=== PATIENT | male | born 1945 | race Caucasian/White ===

== ENCOUNTER → 2020-07-25 08:19 | Outpatient (BNVA) | payer MEDICARE, SELFPAY | PROVIDERS: Visit Provider Orthopaedic Surgery | DX: M11.061 Hydroxyapatite deposition disease, right knee (principal) | CPT/HCPCS: 20610; 99212; J1100 ==

== ENCOUNTER 2023-06-04 12:23 | Inpatient (IN) | payer MEDICARE, SELFPAY ==
--- NOTE | ~2023-06-04 | CT_ITS ---
EXAMINATION: CT ABDOMEN AND PELVIS WITH CONTRAST CLINICAL INFORMATION: Right lower quadrant pain. COMPARISON: None available. TECHNIQUE: Multidetector volumetric images were obtained from the superior aspect of the liver through the pubic symphysis following administration 85 mL of Omnipaque 350 intravenous contrast. Sagittal and coronal reformatted images were obtained on the technologist's workstation. Oral contrast: No This CT examination was performed using dose optimization techniques as appropriate, variously including the following: *Automated exposure control *Adjustment of mA and/or kV according to patient size (this includes techniques or standardized protocols for targeted exams where dose is matched to indication/reason for exam; i.e. extremities or head) *Use of iterative reconstruction technique DLP: 4:30 mGy-cm FINDINGS: LUNG BASES: The visualized lung bases are unremarkable. LIVER, GALLBLADDER, AND BILIARY TREE: There are scattered subcentimeter hepatic hypodensities too small to characterize but possibly small cysts. There is no intrahepatic biliary dilatation. The gallbladder is unremarkable with no evidence of radiopaque gallstones, gallbladder wall thickening, or obvious pericholecystic inflammatory changes. PANCREAS: Unremarkable. SPLEEN: Unremarkable. ADRENAL GLANDS: Unremarkable. KIDNEYS AND URETERS: The kidneys are normal in size, shape, and attenuation. No hydronephrosis, hydroureter, or calculi seen. No perinephric stranding. BLADDER: Unremarkable. GASTROINTESTINAL TRACT: The small and large bowel are unremarkable. The appendix is dilated and thickened up to 1.4 cm with periappendiceal infiltration. ABDOMINAL WALL: No significant hernia is appreciated. LYMPH NODES: Normal. VASCULAR: There is mild atherosclerotic plaque of the abdominal aorta and proximal iliac vessels. PELVIC VISCERA: There is prostate gland hypertrophy. OSSEOUS STRUCTURES: Unremarkable. CT/CT abdomen pelvis w IV con IMPRESSION: Dilated, thickened appendix with periappendiceal infiltration consistent with acute appendicitis. Fleischner guidelines were followed.
[2023-06-04 12:39] VITALS: BP 139/72; PULSE 83; RESP 18; TEMP 36.7; O2SAT 99; BMI 23.7
--- NOTE | 2023-06-04 12:43 | ED.ABDPAIN ---
HPI - Abdominal Pain General Chief Complaint: Abdominal Pain Stated Complaint: Abdominal Pain Time Seen by Provider: 06/04/23 17:10 Source: patient, RN notes reviewed and old records reviewed Mode of arrival: ambulatory Limitations: no limitations History of Present Illness HPI narrative: 77-year-old male past medical history significant for atrial fibrillation on Eliquis, hypertension presents for evaluation of his abdominal pain. Patient reports last night he had some lower abdominal pain that was mostly central. Around 130 this morning pain worsened and his pain now lateralizes to the right lower abdomen He has associated nausea and loose stool Denies any fevers, chills Given the severity his pain he decided to seek medical care He denies any history of abdominal surgeries His pain does not radiate to his back, groin or legs No other complaints or concerns at this time Related Data Home Medications Medication Instructions Recorded Confirmed apixaban 2.5 mg tablet (Eliquis) 2.5 mg PO BID 07/24/20 07/25/20 metoprolol succinate 25 mg 12.5 mg PO DAILY 07/24/20 07/25/20 tablet,extended release 24 hr Allergies Allergy/AdvReac Type Severity Reaction Status Date / Time No Known Allergies Allergy Verified 07/25/20 08:56 Review of Systems Constitutional: Reports as per HPI, Denies chills, Denies fatigue, Denies fever(s) and Denies headache(s) Denies headache(s) Cardiovascular: Denies chest pain and Denies dyspnea Respiratory: Denies cough and Denies dyspnea Gastrointestinal: Reports abdominal pain, Reports change in stool character, Denies constipation, Reports nausea and Denies vomiting Genitourinary: Denies difficulty urinating and Denies dysuria Denies headache(s) and Denies focal weakness Endocrine: Denies fatigue COUNT INCLUDES THE [facility] Past Medical History Medical History (Updated 06/04/23 @ 19:06 by Pedro Porter) Afib Hydroxyapatite deposition disease, unspecified site Surgical History History of carpal tunnel surgery of right wrist Social History Social History Advance Directives: No Advance Directives Information Provided: No Current occupational status: employed and unemployed Current occupation: Right Handed Physical Exam ED Vital Signs: Vital Signs - 24 hr 06/04/23 12:39 06/04/23 17:47 Temperature 98.1 F 98.8 F Pulse Rate 83 75 Respiratory Rate 18 16 Blood Pressure 139/72 120/57 L Pulse Oximetry 99 98 Oxygen Delivery Method Room Air Room Air BMI result Body Mass Index 23.7 Const General: healthy appearing, comfortable, no acute distress, alert and awake Nutritional Appearance: well nourished Orientation/consciousness: patient oriented x3 HENMT Head: Yes normocephalic and Yes atraumatic Eyes Eyelids: Yes eyelids normal Conjunctivae: conjunctivae normal Sclerae: sclerae normal Corneas: corneas normal Pupils: Equal, round and reactive pupils present EOM: EOMs intact bilaterally Neck Neck: Yes full ROM Resp Effort & Inspection: normal respiratory effort, able to speak in complete sentences and not labored GI Inspection: No distended Palpation (GI): Soft to palpation, not firm, Tenderness to palpation present (GI) in the RLQ and suprapubicly, Guarding due to palpation present (GI) in the RLQ and not rigid Skin General skin exam: elasticity normal Neuro General: patient oriented x3 Cranial nerves: Yes Equal, round and reactive pupils present and Yes Bilaterally intact EOM present Cognition (Neuro): normal cognition Extrem Other: Moving all extremities well without any obvious deformities Course Course Course Narrative: This is an RME: Additional HPI, ROS, PE not included below will be deferred to primary provider. 69-year-old male presents with complaints of right lower quadrant pain that started suddenly at 01:00, reports associated nausea, no vomiting or diarrhea. Patient states he has no appetite. He had to force himself to eat oatmeal this morning. Also complaining of cough, congestion and body aches since yesterday negative COVID test at home. Plan labs, viral test Medical Decision Making Medical Decision Making MDM Narrative: 77-year-old male presents for evaluation of right lower abdominal pain with GI symptoms. He is tender and guarding to the right lower quadrant on exam. Will get a CT scan of the abdomen pelvis to evaluate for acute appendicitis. Labs are all significant for a mild leukocytosis with a left shift. No significant his chemistry abnormalities Differential Diagnosis Differential Diagnoses: The differential diagnosis associated with the presentation includes Acute appendicitis Obstructive uropathy Inguinal hernia Constipation Gastroenteritis Admission/Observation Consideration of admission/observation: Escalation of care including admission/observation considered Patient will be admitted to the surgical service for acute appendicitis Consult Healthcare Provider Management of the patient was discussed with: Lead Rider (Dr. Jose Soto, general surgery for acute appendicitis) Lab Data MDM Lab Attestation statement: I reviewed the patient's lab results. Mild leukocytosis of 12.6 K with a left shift. No anemia, no electrolyte abnormalities. Normal renal function 06/04/23 12:46 06/04/23 12:46 Labs: Lab Results 06/04/23 06/04/23 Range/Units 12:46 12:47 WBC 12.6 H (4.8-10.8) X10*3/uL RBC 4.46 L (4.60-5.80) X10*6/uL Hgb 14.1 (14.0-18.0) g/dl Hct 42.1 (42.0-52.0) % MCV 94.4 (80.0-98.0) fL MCH 31.6 (27.0-33.0) pg MCHC 33.5 (31.0-36.0) g/dl RDW 13.1 (11.0-16.0) % Plt Count 197 (160-400) X10*3/uL MPV 9.4 (9.4-12.4) fL Immature Gran % (Auto) 0.4 (0.0-0.4) % Neut % (Auto) 85.8 H (45-73) % Lymph % (Auto) 5.6 L (20-40) % [place] % (Auto) 7.9 (2-11) % Eos % (Auto) 0.1 (0-4) % Baso % (Auto) 0.2 (0-2) % Lymph # (Auto) 0.7 L (1.2-4.9) X10*3/uL [place] # (Auto) 1.0 (0.1-1.2) X10*3/uL Eos # (Auto) 0.0 (0.0-0.4) X10*3/uL Baso # (Auto) 0.0 (0.0-0.2) X10*3/uL Abs Immat Gran (auto) 0.05 H (0.00-0.03) X10*3/uL Absolute Neuts (auto) 10.8 H (2.0-8.3) x10*3/uL Absolute Nucleated RBC 0.000 (0.0-0.012) X10*3/uL Nucleated RBC % (auto) 0.0 (0.0-0.2) /100WBC Sodium 138 (135-145) mmol/L Potassium 4.3 (3.3-5.1) mmol/L Chloride 106 (96-108) mmol/L Carbon Dioxide 27 (22-29) mmol/L Anion Gap 9 L (12-20) BUN 13 (9-16) mg/dL Creatinine 1.10 (0.5-1.4) mg/dL Estim Creat Clear Calc 49.9 Estimated GFR > 60 Random Glucose 134 H (60-115) mg/dL Calcium 9.9 (8.4-10.2) mg/dL Magnesium 1.6 (1.6-2.6) mg/dL Total Bilirubin 1.6 H (0.0-1.0) mg/dL AST 19 (5-37) U/L ALT 16 (0-40) U/L Alkaline Phosphatase 38 L (39-117) U/L Total Protein 7.7 (6.5-8.0) g/dL Albumin 4.4 (3.5-5.0) g/dL Lipase 23 (8-78) U/L COVID-19 ([facility]) Negative (Negative) COVID-19 Clin Com See Note Independent Interpretation I performed an independent interpretation of an: CT Scan (Thickened appendix with periappendiceal stranding) Radiology Impression Discussion of test interpretation with radiology: I have reviewed the radiologist's reading. (Findings consistent with acute appendicitis) Medications Administered Discontinued Medications Generic Name Dose Route Start Last Admin Trade Name Freq PRN Reason Stop Dose Admin Sodium Chloride 1,000 mls @ 999 mls/hr 06/04/23 17:30 06/04/23 17:42 Ns IV 06/04/23 18:30 999 mls/hr .Q1H1M REGINE Administration Iohexol 100 ml 06/04/23 18:08 06/04/23 18:09 Iohexol 350 Mg/Ml 100 Ml Infus..Btl IV 06/04/23 18:09 85 ml ONCE ONE Administration Morphine Sulfate 2 mg 06/04/23 17:20 06/04/23 17:42 Morphine Sulfate 2 Mg/Ml Cartridge IVPUSH 06/04/23 17:21 2 mg ONCE ONE Administration Protocol Ondansetron HCl 4 mg 06/04/23 17:20 06/04/23 17:42 Ondansetron Hcl 4 Mg/2 Ml Vial IVPUSH 06/04/23 17:21 4 mg ONCE ONE Administration Discharge Plan Discharge Clinical Impression: Acute appendicitis Patient Disposition: Admitted As Inpatient Prescriptions: No Action Eliquis 2.5 mg tablet 2.5 mg PO BID metoprolol succinate 25 mg tablet extended release 24 hr 12.5 mg PO DAILY
[2023-06-04 12:53] LABS: MANUAL DIFF FLAG NO
[2023-06-04 12:54] LABS: Basophils Percent Auto 0.2 % (0-2); Eosinophils Percent Auto 0.1 % (0-4); Hematocrit 42.1 % (42.0-52.0); Hemoglobin 14.1 g/dl (14.0-18.0); Imm Gran Abs Auto 0.05 X10*3/uL (0.00-0.03); Imm Gran Pct Auto 0.4 % (0.0-0.4); Lymphocytes Absolute Auto 0.7 X10*3/uL (1.2-4.9); Lymphocytes Percent Auto 5.6 % (20-40); Mean Corpuscular HGB Conc 33.5 g/dl (31.0-36.0); Mean Corpuscular Hemoglobin 31.6 pg (27.0-33.0); Mean Corpuscular Volume 94.4 fL (80.0-98.0); Mean Platelet Volume 9.4 fL (9.4-12.4); Monocytes Percent Auto 7.9 % (2-11); Neutrophils Absolute Auto 10.8 x10*3/uL (2.0-8.3); Neutrophils Percent Auto 85.8 % (45-73); Platelet Count 197 X10*3/uL (160-400); Red Blood Count 4.46 X10*6/uL (4.60-5.80); Red Cell Distribution Width 13.1 % (11.0-16.0); White Blood Count 12.6 X10*3/uL (4.8-10.8)
[2023-06-04 13:06] LABS: Alanine Aminotransferase 16 U/L (0-40); Albumin Level 4.4 g/dL (3.5-5.0); Alkaline Phosphatase 38 U/L (39-117); Anion Gap 9 (12-20); Aspartate Amino Transferase 19 U/L (5-37); Bilirubin Total 1.6 mg/dL (0.0-1.0); Blood Urea Nitrogen 13 mg/dL (9-16); Calcium 9.9 mg/dL (8.4-10.2); Carbon Dioxide 27 mmol/L (22-29); Chloride 106 mmol/L (96-108); Creatinine Clr Calc Pharmacy 49.9; Estimated Glomerular Filt Rate > 60; Glucose Random 134 mg/dL (60-115); Lipase 23 U/L (8-78); Magnesium 1.6 mg/dL (1.6-2.6); Potassium 4.3 mmol/L (3.3-5.1); Sodium 138 mmol/L (135-145); Total Protein 7.7 g/dL (6.5-8.0)
[2023-06-04 13:26] LABS: COVID-19 Test Negative (Negative); IDNOW Serial# BCCEAD1C
[2023-06-04] MEDS: 0.9 % Sodium Chloride 1,000 ML 999 ML IV (17:42)
[2023-06-04] MEDS: Morphine Sulfate 2 MG/ML CARTRIDGE IVPUSH (17:42)
[2023-06-04] MEDS: ondansetron HCL 4 MG/2 ML VIAL IVPUSH (17:42)
[2023-06-04 17:47] VITALS: BP 120/57; PULSE 75; RESP 16; TEMP 37.1; O2SAT 98
--- NOTE | 2023-06-04 18:03 | PC.NURSE ---
alert and oriented, respirations even and unlabored. iv established, medicated per the MAR with fluids infusing. off at CT scan at this time.
[2023-06-04] MEDS: iohexoL 350 MG/ML 100 ML INFUS..BTL IV (18:09)
[2023-06-04 19:15] LABS: INTERNATIONAL NORM RATIO 1.8 (0.9-1.1); Prothrombin Time 22.3 SEC (11.1-13.3)
[2023-06-04 19:17] LABS: Partial Thromboplastin Time 34.3 SEC (26.0-36.4)
[2023-06-04] MEDS: Piperacillin Sodium/Tazobactam 3.375 GM in 0.9 % Sodium Chloride 50 ML IV (19:49)
--- NOTE | 2023-06-04 20:10 | PC.NURSE ---
Assumed care of patient at 1915. Pt alert and oriented in no acute distress. PT reports 5/10 pain at this time when he coughs. Blood cultures draw at two different sites. IV abx administered. IV line intact and patent. at bedside. Report given to Charge Nurse floor 3. PT to be transported by aviva Dorsey.
[2023-06-04 20:21] VITALS: BP 122/57; PULSE 71; RESP 20; TEMP 37; O2SAT 97
[2023-06-04 20:23] VITALS: BMI 24.5
[2023-06-04] MEDS: Acetaminophen 1,000 MG/100 ML PIGGYBACK 400 MG IV (21:09)
[2023-06-04] MEDS: Dextrose 5 % and Lactated Ring 1,000 ML 125 ML IVCONT (21:27)
[2023-06-04 23:23] LABS: Appearance Urine Clear; Color Urine Yellow; Glucose Urine UA Negative (Negative); Leukocyte Esterase Urine Negative (Negative); Nitrite Urine Negative (Negative); Specific Gravity - Urine >= 1.030 (1.005-1.025); UMIC TRIGGER UACC YES; Urine Blood Trace (Negative); Urine Ketones Negative (Negative); Urine Protein Negative (Neg-Trace)
[2023-06-04 23:28] LABS: Bacteria Urine None Seen (None Seen); Hyaline Casts Urine 0-2 /LPF (0-2); RBC Urine 0-2 /HPF (0-2); Squamous Epithelial Cell Urine 0-2 /HPF (0-2); WBC Urine 0-5 /HPF (0-5)
[2023-06-05] VITALS (7 sets, daily range): BP systolic 105–137; BP diastolic 55–66; PULSE 47–79; RESP 16–18; TEMP 36–36.6; O2SAT 95–99
--- NOTE | 2023-06-05 | ECG_ITS ---
Test Reason : bradycardia Blood Pressure : / mmHG Vent. Rate : 101 BPM Atrial Rate : 293 BPM P-R Int : 000 ms QRS Dur : 084 ms QT Int : 312 ms P-R-T Axes : 248 074 -51 degrees QTc Int : 404 ms Atrial flutter with variable A-V block Inferior-posterior infarct , age undetermined Abnormal ECG When compared with ECG of 06-JUN-2023 02:22, Rhythm shows atrial flutter with variable block Inferior-posterior infarct is now Present Referred By: Keila Flores Electronically Signed By:DIRK VARGAS
[2023-06-05] MEDS: Piperacillin Sodium/Tazobactam 3.375 GM in 0.9 % Sodium Chloride 50 ML IV ×4 (00:25→19:28)
[2023-06-05] MEDS: Acetaminophen 1,000 MG/100 ML PIGGYBACK 400 MG IV ×3 (03:53→14:14)
[2023-06-05] MEDS: Dextrose 5 % and Lactated Ring 1,000 ML 125 ML IVCONT ×3 (03:53→20:38)
[2023-06-05] MEDS: Benzonatate 100 MG CAPSULE 200 MG PO (04:26)
--- NOTE | 2023-06-05 07:18 | PHA.MEDREC ---
Pharmacy Consult ? Medication Reconciliation Pharmacy has completed the medication reconciliation.
--- NOTE | 2023-06-05 07:49 | PM.HPGS ---
History of Present Illness History of Present Illness Date of Service: 06/05/23 Chief complaint: Acute appendicitis Narrative: Solitario Mckee is a 77 year old male Presenting with complaints of abdominal pain in the right lower quadrant. Pain began as generalized lower abdominal pain on ( 06/03/2023 ) and gradually radiated to the right lower quadrant 1 day later. When the pain persisted and increased in severity he subsequently presented to the emergency department for further evaluation. He denies a previous history of abdominal pain similar to this. The pain seems to increase with motion. He reports nausea without vomiting as well as several loose bowel movements. He denied fever or chills. He presented to the emergency department and was found to have an elevated WBC of 12. CT abdomen and pelvis revealed a dilated appendix with surrounding inflammatory changes suggestive of acute appendicitis. No free fluid or abscess could be identified. No fecalith was identified. Patient was admitted and started on IV antibiotics. Patient has a prior history of atrial fibrillation and is on Eliquis 5 mg p.o. b.i.d.; he took his morning dose on 06/04/2023. This morning he reports feeling much improved with decreased abdominal pain and no pain with motion. He does have pain when pressing the abdomen in the right lower quadrant. Review of Systems Review of Systems: Yes all other systems are reviewed and are negative Constitutional: Constitutional: Denies chills and Denies fever(s) ENT: Reports hoarseness Cardiovascular: Cardiovascular: Reports irregular heart rhythm Respiratory: Respiratory: Denies pain with cough, Denies stridor and Denies wheezing Gastrointestinal: Gastrointestinal: Reports as per HPI, Reports abdominal pain, Reports loose stools, Reports nausea and Denies vomiting Allergic/Immunologic: Allergic/Immunologic: Denies wheezing [facility] Past Medical History Medical History Afib Hydroxyapatite deposition disease, unspecified site Surgical History Surgical History History of carpal tunnel surgery of right wrist Social History Social History Household Members: Significant Other Housing: Condominium Do you presently have visiting nurse or other home services: No Patient Tobacco Use Status: Never used Tobacco Substance Use Type Other:: thc and cbd seltzer twice a month or less Currently Displaying Signs/Symptoms of Drug Intoxication Withdrawal: No Have you been hit, kicked, punched, or otherwise hurt by someone within the past year? If so, by whom?: No Do you feel safe in your current relationship?: Yes Is there a partner from a previous relationship who is making you feel unsafe now?: No Are you made to feel afraid or neglected: No Advance Directives: No Advance Directives Information Provided: No Do you have thoughts of harming others: None Do you have a plan to hurt others: No Plan Recently lost weight without trying: No Nutrition Risks: No Nutritional Risk Current occupational status: employed and unemployed Current occupation: Right Handed Meds Allergies Allergy/AdvReac Type Severity Reaction Status Date / Time No Known Allergies Allergy Verified 07/25/20 08:56 Active Medications: Current Medications Benzonatate (Benzonatate 100 Mg Capsule) 200 mg PO TID PRN PRN Reason: Cough Last Admin: 06/05/23 04:26 Dose: 200 mg Hydromorphone HCl (Hydromorphone Hcl 0.5 Mg/0.5 Ml Syringe) 0.5 mg IVPUSH Q3H PRN; Protocol PRN Reason: Pain, Severe (Pain Scale 7-10) Dextrose/Lactated Ringer's (D5lr) 1,000 mls @ 125 mls/hr IVCONT .Q8H [facility] Last Admin: 06/05/23 03:53 Dose: 125 mls/hr Piperacillin Sod/Tazobactam (Sod 3.375 gm/ Sodium Chloride) 50 mls @ 100 mls/hr IV Q6H [facility] Last Infusion: 06/05/23 07:38 Dose: Infused Acetaminophen (Ofirmev) 1,000 mg in 100 mls @ 400 mls/hr IV Q6H [facility] Stop: 06/05/23 15:14 Last Infusion: 06/05/23 04:23 Dose: Infused Ondansetron HCl (Ondansetron Hcl 4 Mg/2 Ml Vial) 4 mg IVPUSH QID PRN PRN Reason: Nausea Sodium Chloride (0.9 % Sodium Chloride Flush 3 Ml Syringe) 3 ml IVFLUSH QSHIFT [facility] Last Admin: 06/04/23 22:01 Dose: Not Given Zolpidem Tartrate (Zolpidem Tartrate 5 Mg Tablet) 5 mg PO BEDTIME PRN PRN Reason: Insomnia Home Medications Medication Instructions Recorded Confirmed Last Taken Type apixaban 5 mg tablet (Eliquis) 5 mg PO BID 06/04/23 06/04/23 06/04/23 18:30 History cholecalciferol (vitamin D3) 25 25 mcg PO DAILY 06/04/23 06/04/23 06/04/23 History mcg (1,000 unit) tablet folic acid 1 mg tablet 1 mg PO DAILY 06/04/23 06/04/23 06/04/23 History lutein 1 tab PO DAILY 06/04/23 06/04/23 06/04/23 History Physical Exam Vital Signs: Vital Signs: Last Vital Signs Temp 97.1 F 06/05/23 07:44 Pulse 53 06/05/23 07:44 Resp 18 06/05/23 07:44 BP 109/57 L 06/05/23 07:44 Pulse Ox 97 06/05/23 07:44 O2 Del Method Room Air 06/05/23 07:44 BMI result Body Mass Index 24.5 Const: General: no acute distress and well developed Nutritional Appearance: well nourished Orientation/consciousness: patient oriented x3 Limitations: no limitations HEENT: Head: Yes normocephalic and Yes atraumatic Ears: hearing grossly normal bilaterally Eyes: Sclerae: sclerae normal EOM: EOMs intact bilaterally Resp: Effort & Inspection: normal respiratory effort, no audible wheezes, no cough and no respiratory distress GI: Inspection: Yes normal to inspection Palpation (GI): Soft to palpation, Tenderness to palpation present (GI) in the RLQ; obturator sign negative, psoas sign negative, with no rebound tenderness and Rovsing's sign negative, no guarding, not rigid and No hepatosplenomegaly present Percussion: Yes normal to percussion Auscultation: normal bowel sounds Rectal Exam - Male: Yes deferred Skin: Other: Warm, dry, no rash Neuro: General: patient oriented x3 Extrem: General: Yes no clubbing, cyanosis or edema Results Results Labs: Short CBC 06/04/23 Range/Units 12:46 WBC 12.6 H (4.8-10.8) X10*3/uL Hgb 14.1 (14.0-18.0) g/dl Hct 42.1 (42.0-52.0) % Plt Count 197 (160-400) X10*3/uL BMP 06/04/23 12:46 Sodium 138 Potassium 4.3 Chloride 106 Carbon Dioxide 27 BUN 13 Creatinine 1.10 Calcium 9.9 Liver Function 06/04/23 Range/Units 12:46 Total Bilirubin 1.6 H (0.0-1.0) mg/dL AST 19 (5-37) U/L ALT 16 (0-40) U/L Alkaline Phosphatase 38 L (39-117) U/L Albumin 4.4 (3.5-5.0) g/dL Urine 06/04/23 Range/Units 23:03 Urine Color Yellow Urine Appearance Clear Urine pH 5.0 (5.0-9.0) Ur Specific [place] >= 1.030 H (1.005-1.025) Urine Protein Negative (Neg-Trace) mg/dL Urine Glucose (UA) Negative (Negative) mg/dL Assessment and Plan (1) Acute appendicitis: Qualifiers: Acute appendicitis type: with localized peritonitis Appendicitis gangrene presence: without gangrene Appendicitis perforation presence: without perforation Appendicitis abscess presence: without abscess Qualified Code(s): K35.30 - Acute appendicitis with localized peritonitis, without perforation or gangrene Status: Acute Plan 77-year-old male patient with history of atrial fibrillation on anticoagulation presenting with complaints of abdominal pain in the right lower quadrant 2 days duration. Workup in the emergency department revealed an elevated WBC and CT with evidence of a dilated appendix inflammation suggestive of acute appendicitis. On examination the patient does have tenderness in the right lower quadrant suggestive of acute appendicitis. Overall patient is much improved after receiving antibiotics overnight. We discussed the option of proceeding to laparoscopic or possible open appendectomy verses continued treatment with antibiotics. We also discussed the risks of appendectomy given his oral anticoagulation. He wishes to continue on antibiotics as this does seem to be helping. I recommended continuing IV antibiotics for another 24 hours. Laboratories have been ordered for today but have yet to be drawn at the time of this dictation. Hospitalist consultation requested for management of his medications. If he continues to improve I will switch him to oral antibiotics tomorrow with possible discharge to home. However if the pain seems to not be improving, laparoscopic appendectomy would be recommended. Expressed understanding and agrees with the plan. Time Spent With Patient Time: Total time managing care of this patient today _45___ minutes. Quality Stroke Does the patient have a stroke diagnosis?: No VTE Prior VTE?: No VTE Risk Level:: Surgical - moderate VTE Device Contraindication: N/A - Device Ordered VTE Drug Contraindication: Patient Refused Procedures Date of Service Date of Service: 06/05/23
[2023-06-05 08:39] LABS: MANUAL DIFF FLAG NO
[2023-06-05 08:42] LABS: Basophils Percent Auto 0.2 % (0-2); Eosinophils Percent Auto 0.3 % (0-4); Hematocrit 35.8 % (42.0-52.0); Hemoglobin 11.9 g/dl (14.0-18.0); Imm Gran Abs Auto 0.02 X10*3/uL (0.00-0.03); Imm Gran Pct Auto 0.2 % (0.0-0.4); Lymphocytes Absolute Auto 1.7 X10*3/uL (1.2-4.9); Lymphocytes Percent Auto 18.1 % (20-40); Mean Corpuscular HGB Conc 33.2 g/dl (31.0-36.0); Mean Corpuscular Hemoglobin 31.6 pg (27.0-33.0); Mean Platelet Volume 10.1 fL (9.4-12.4); Monocytes Absolute Auto 0.9 X10*3/uL (0.1-1.2); Monocytes Percent Auto 9.5 % (2-11); Neutrophils Absolute Auto 6.5 x10*3/uL (2.0-8.3); Neutrophils Percent Auto 71.7 % (45-73); Platelet Count 167 X10*3/uL (160-400); Red Blood Count 3.77 X10*6/uL (4.60-5.80); Red Cell Distribution Width 13.2 % (11.0-16.0); White Blood Count 9.1 X10*3/uL (4.8-10.8)
[2023-06-05 09:04] LABS: Alanine Aminotransferase 12 U/L (0-40); Albumin Level 3.5 g/dL (3.5-5.0); Alkaline Phosphatase 27 U/L (39-117); Anion Gap 10 (12-20); Aspartate Amino Transferase 13 U/L (5-37); Blood Urea Nitrogen 12 mg/dL (9-16); Carbon Dioxide 25 mmol/L (22-29); Chloride 107 mmol/L (96-108); Creatinine Clr Calc Pharmacy 47.7; Estimated Glomerular Filt Rate > 60; Glucose Random 97 mg/dL (60-115); Potassium 3.7 mmol/L (3.3-5.1); Sodium 138 mmol/L (135-145); Total Protein 6.2 g/dL (6.5-8.0)
--- NOTE | 2023-06-05 15:17 | MHC.CM.PN ---
CM ATTEMPTED TO SEE PT WHO WAS SLEEPING, CM WILL RETURN
[2023-06-05] MEDS: 0.9 % Sodium Chloride Flush 3 ML SYRINGE IVFLUSH (15:39)
--- NOTE | 2023-06-05 17:27 | PM.IMCN ---
History of Present Illness Data of Consult Service Date: 06/05/23 Requesting physician: Jose Soto Primary Care Provider: Karan Crook MD [facility] Reason for consult: afib, appendicitis This is a 77-year-old male with history of atrial fibrillation who presented to the emergency department with complaints of abdominal pain. Workup in the emergency department was consistent with acute appendicitis and he was admitted to the surgical service for further management. He was started on Zosyn and the hospitalists were consulted for assistance with medical management. Patient states that his abdominal pain is beginning to improve. He has no nausea or vomiting at this time. He denies any associated fever, chills. Review of Systems Review of Systems: Yes all other systems are reviewed and are negative Constitutional: Constitutional: Denies chills and Denies fever(s) Cardiovascular: Cardiovascular: Denies chest pain, Denies palpitations and Denies paroxysmal nocturnal dyspnea Gastrointestinal: Gastrointestinal: Reports abdominal pain Endocrine: Endocrine: Denies palpitations [facility] Medical History Afib Hydroxyapatite deposition disease, unspecified site Functional capacity: independent ambulation Surgical History History of carpal tunnel surgery of right wrist Social History Household Members: Significant Other Housing: Condominium Do you presently have visiting nurse or other home services: No Patient Tobacco Use Status: Never used Tobacco Substance Use Type Other:: thc and cbd seltzer twice a month or less Currently Displaying Signs/Symptoms of Drug Intoxication Withdrawal: No Have you been hit, kicked, punched, or otherwise hurt by someone within the past year? 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375 gm/ Sodium Chloride) 50 mls @ 100 mls/hr IV Q6H [facility] Last Infusion: 06/05/23 14:11 Dose: Infused Ondansetron HCl (Ondansetron Hcl 4 Mg/2 Ml Vial) 4 mg IVPUSH QID PRN PRN Reason: Nausea Sodium Chloride (0.9 % Sodium Chloride Flush 3 Ml Syringe) 3 ml IVFLUSH QSHIFT [facility] Last Admin: 06/05/23 15:39 Dose: 3 ml Zolpidem Tartrate (Zolpidem Tartrate 5 Mg Tablet) 5 mg PO BEDTIME PRN PRN Reason: Insomnia Home Medications Medication Instructions Recorded Confirmed Last Taken Type apixaban 5 mg tablet (Eliquis) 5 mg PO BID 06/04/23 06/04/23 06/04/23 18:30 History cholecalciferol (vitamin D3) 25 25 mcg PO DAILY 06/04/23 06/04/23 06/04/23 History mcg (1,000 unit) tablet folic acid 1 mg tablet 1 mg PO DAILY 06/04/23 06/04/23 06/04/23 History lutein 1 tab PO DAILY 06/04/23 06/04/23 06/04/23 History Physical Exam Vital Signs and Narrative: Vital Signs: Last Vital Signs Temp 96.8 F 06/05/23 15:40 Pulse 50 06/05/23 15:40 Resp 16 06/05/23 15:40 BP 106/58 L 06/05/23 15:40 Pulse Ox 97 06/05/23 15:40 O2 Del Method Room Air 06/05/23 15:40 BMI result Body Mass Index 24.5 Const: General: cooperative, comfortable, no acute distress, alert and awake Nutritional Appearance: average body habitus Orientation/consciousness: patient oriented x3 Resp: Effort & Inspection: normal respiratory effort, able to speak in complete sentences, no respiratory distress and no use of accessory muscles Cardio: Rate: regular rate GI: Other: tender RLQ, no guarding or rebound Palpation (GI): Soft to palpation Neuro: General: patient oriented x3, moves all extremities and CN's II-XI intact bilaterally Extrem: General: Yes no pedal edema Results Labs 06/05/23 07:43 06/05/23 07:43 Labs: Laboratory Results - last 24 hr 06/04/23 06/04/23 06/05/23 19:01 23:03 07:43 MCV 95.0 MCH 31.6 MCHC 33.2 RDW 13.2 Plt Count 167 MPV 10.1 Immature Gran % (Auto) 0.2 Neut % (Auto) 71.7 Lymph % (Auto) 18.1 L Benson % (Auto) 9.5 Eos % (Auto) 0.3 Baso % (Auto) 0.2 Lymph # (Auto) 1.7 Benson # (Auto) 0.9 Eos # (Auto) 0.0 Baso # (Auto) 0.0 Abs Immat Gran (auto) 0.02 Absolute Neuts (auto) 6.5 Absolute Nucleated RBC 0.000 Nucleated RBC % (auto) 0.0 PT 22.3 H INR 1.8 H APTT 34.3 Anion Gap 10 L Estim Creat Clear Calc 47.7 Estimated GFR > 60 Random Glucose 97 Calcium 9.0 D Total Bilirubin 2.0 H AST 13 ALT 12 Alkaline Phosphatase 27 L Total Protein 6.2 L Albumin 3.5 Urine Color Yellow Urine Appearance Clear Urine pH 5.0 Ur Specific [place] >= 1.030 H Urine Protein Negative Urine Glucose (UA) Negative Urine Ketones Negative Urine Blood Trace H Urine Nitrite Negative Ur Leukocyte Esterase Negative Urine RBC 0-2 Urine WBC 0-5 Ur Squamous Epith Cells 0-2 Urine Bacteria None Seen Hyaline Casts 0-2 Blood Type B Positive Antibody Screen NEGATIVE Imaging Radiologist's Impressions: Impressions Abdomen/Pelvis CT 06/04/23 18:10 IMPRESSION: Dilated, thickened appendix with periappendiceal infiltration consistent with acute appendicitis. Fleischner guidelines were followed. Assessment and Plan (1) Acute appendicitis: Qualifiers: Acute appendicitis type: with localized peritonitis Appendicitis abscess presence: without abscess Appendicitis gangrene presence: without gangrene Appendicitis perforation presence: without perforation Qualified Code(s): K35.30 - Acute appendicitis with localized peritonitis, without perforation or gangrene Status: Acute Plan This is a 77-year-old male with history of atrial fibrillation on Eliquis he presented to the emergency department with abdominal pain found to have acute appendicitis and admitted to the surgical service for further management acute appendicitis Management as per surgical team Eliquis currently on hold in anticipation of possible surgical intervention paroxysmal atrial fibrillation status post ablation HR controlled, no longer on rate controlling medication Eliquis on hold as above Normocytic anemia H/H above transfusion threshold follow CBC Thank you for allowing us to participate in the care of this patient, we will follow along with you Time Spent With Patient Time: Total time managing care of this patient today ____ minutes.
--- NOTE | 2023-06-05 18:32 | PC.NURSE ---
Patient HR low 43-47 range ,BP 137/63,sat 99% on RA ,patient c/o feeling weak,LEWIS Pardo notified,
--- NOTE | 2023-06-05 19:01 | PC.NURSE ---
EKG done ,Dr. Etienne made aware of results
[2023-06-05] MEDS: Magnesium Sulfate/D5W 1 GM/100 ML PIGGYBACK IV (19:14)
[2023-06-05] MEDS: Potassium Chloride/H20 10 MEQ/100 ML PIGGYBACK 100 MEQ IV ×2 (20:41→21:45)
--- NOTE | 2023-06-06 | ECG_ITS ---
Test Reason : tachycardia Blood Pressure : / mmHG Vent. Rate : 049 BPM Atrial Rate : 049 BPM P-R Int : 164 ms QRS Dur : 080 ms QT Int : 410 ms P-R-T Axes : 065 026 052 degrees QTc Int : 370 ms Sinus bradycardia Otherwise normal ECG No previous ECGs available Referred By: Keila Flores Electronically Signed By:DIRK VARGAS
[2023-06-06] MEDS: Piperacillin Sodium/Tazobactam 3.375 GM in 0.9 % Sodium Chloride 50 ML IV ×2 (00:14→07:46)
[2023-06-06] MEDS: 0.9 % Sodium Chloride Flush 3 ML SYRINGE IVFLUSH (00:20)
[2023-06-06 02:22] VITALS: BP 134/65; PULSE 40; RESP 16; TEMP 36.4; O2SAT 96
[2023-06-06 02:39] VITALS: BP 147/67; PULSE 50; RESP 14; TEMP 36.1; O2SAT 95
[2023-06-06] MEDS: Dextrose 5 % and Lactated Ring 1,000 ML 125 ML IVCONT (05:45)
[2023-06-06 07:36] VITALS: BP 136/66; PULSE 52; RESP 18; TEMP 36.1; O2SAT 98
[2023-06-06 07:56] LABS: Hematocrit 36.2 % (42.0-52.0); Hemoglobin 12.1 g/dl (14.0-18.0); Mean Corpuscular HGB Conc 33.4 g/dl (31.0-36.0); Mean Corpuscular Volume 95.8 fL (80.0-98.0); Mean Platelet Volume 10.7 fL (9.4-12.4); Platelet Count 175 X10*3/uL (160-400); Red Blood Count 3.78 X10*6/uL (4.60-5.80); Red Cell Distribution Width 13.1 % (11.0-16.0); White Blood Count 5.5 X10*3/uL (4.8-10.8)
[2023-06-06 08:18] LABS: Anion Gap 14 (12-20); Blood Urea Nitrogen 8 mg/dL (9-16); Calcium 8.9 mg/dL (8.4-10.2); Carbon Dioxide 23 mmol/L (22-29); Chloride 108 mmol/L (96-108); Creatinine Clr Calc Pharmacy 49.9; Estimated Glomerular Filt Rate > 60; Glucose Random 104 mg/dL (60-115); Potassium 3.7 mmol/L (3.3-5.1); Sodium 141 mmol/L (135-145)
[2023-06-06 08:38] LABS: Thyroid Stimulating Hormone 1.92 uIU/mL (0.32-4.0)
--- NOTE | 2023-06-06 08:55 | P.PNGS_ITS ---
Subjective Subjective Date of Service: 06/06/23 Interval history: Patient had a period of low heart rate during the night. Feels improved this morning with no abdominal pain. Denies nausea, vomiting, but does report several loose bowel movements. He reports being hungry this morning. Physical Exam 2 Vital Signs: Vital Signs: Last Vital Signs Temp 96.9 F 06/06/23 07:36 Pulse 52 06/06/23 07:36 Resp 18 06/06/23 07:36 BP 136/66 06/06/23 07:36 Pulse Ox 98 06/06/23 07:36 O2 Del Method Room Air 06/06/23 07:36 BMI result Body Mass Index 24.5 Const: General: no acute distress and well developed Nutritional Appearance: well nourished Orientation/consciousness: patient oriented x3 Limitations: no limitations HEENT: Head: Yes normocephalic and Yes atraumatic Ears: hearing grossly normal bilaterally Eyes: Sclerae: sclerae normal EOM: EOMs intact bilaterally Resp: Effort & Inspection: normal respiratory effort, no audible wheezes, no cough and no respiratory distress GI: Inspection: Yes normal to inspection Palpation (GI): Soft to palpation, nontender, no guarding, not rigid and No hepatosplenomegaly present P ercussion: Yes normal to percussion Auscultation: normal bowel sounds R ectal Exam - Male: Yes deferred Skin: Other: Warm, dry, no rash Neuro: General: patient oriented x3 Extrem: General: Yes no clubbing, cyanosis or edema Objective Data Active Medications Amoxicillin/Clavulanate Potassium (Amoxicillin/Potassium Clav 875 Mg Tablet) 875 mg PO BID [facility] Apixaban (Apixaban 5 Mg Tablet) 5 mg PO BID [facility] Benzonatate (Benzonatate 100 Mg Capsule) 200 mg PO TID PRN PRN Reason: Cough Last Admin: 06/05/23 04:26 Dose: 200 mg Documented By: PURA Folic Acid (Folic Acid 1 Mg Tablet) 1 mg PO DAILY [facility] Hydromorphone HCl (Hydromorphone Hcl 0.5 Mg/0.5 Ml Syringe) 0.25 mg IVPUSH Q3H PRN; Protocol PRN Reason: Pain, Severe (Pain Scale 7-10) Ondansetron HCl (Ondansetron Hcl 4 Mg/2 Ml Vial) 4 mg IVPUSH QID PRN PRN Reason: Nausea Sodium Chloride (0.9 % Sodium Chloride Flush 3 Ml Syringe) 3 ml IVFLUSH QSHIFT [facility] Last Admin: 06/06/23 07:20 Dose: Not Given Documented By: PACO Non-Admin Reason: IV Running Vitamin D (Cholecalciferol (Vitamin D3) 25 Mcg Tablet) 25 mcg PO DAILY [facility] Zolpidem Tartrate (Zolpidem Tartrate 5 Mg Tablet) 5 mg PO BEDTIME PRN PRN Reason: Insomnia Labs 06/06/23 06:19 06/06/23 06:19 Labs: Laboratory Results - last 24 hr 06/05/23 06/06/23 07:43 06:19 MCV 95.8 MCH 32.0 MCHC 33.4 RDW 13.1 Plt Count 175 MPV 10.7 Absolute Nucleated RBC 0.000 Nucleated RBC % (auto) 0.0 Anion Gap 10 L 14 Estim Creat Clear Calc 47.7 49.9 Estimated GFR > 60 > 60 Random Glucose 97 104 Calcium 9.0 D 8.9 Total Bilirubin 2.0 H AST 13 ALT 12 Alkaline Phosphatase 27 L Total Protein 6.2 L Albumin 3.5 TSH 1.92 Microbiology Microbiology Results: Microbiology 06/04/23 19:42 Blood Culture - Preliminary Blood - Venous No growth after 24 hours. 06/04/23 19:47 Blood Culture - Preliminary Blood - Venous No growth after 24 hours. Procedures Date of Service Date of Service: 06/06/23 Progress Note: A&P Assessment and plan (1) Acute appendicitis: Status: Acute Plan 77-year-old male patient with history of atrial fibrillation on oral anticoagulation found to have acute appendicitis. He was treated non operatively with antibiotics. Laboratories yesterday revealed normalization of WBC. He is much improved with no further abdominal pain and improved appetite. I will advance him to a regular diet and switch him to oral antibiotics. He may be ready for discharge later today if the diet is well tolerated and is abdomen remains benign. He expressed understanding and agrees with the plan. Time Spent With Patient Time: Total time managing care of this patient today ____ minutes. No Severe Sepsis: No Severe Sepsis Quality Stroke Does the patient have a stroke diagnosis?: No VTE Prior VTE?: No VTE Risk Level:: Surgical - moderate VTE Device Contraindication: N/A - Device Ordered VTE Drug Contraindication: Patient Refused
[2023-06-06] MEDS: Apixaban 5 MG TABLET PO (09:28)
[2023-06-06] MEDS: Cholecalciferol (Vitamin D3) 25 MCG TABLET PO (09:28)
[2023-06-06] MEDS: Amoxicillin/Potassium Clav 875 MG TABLET PO (09:28)
[2023-06-06] MEDS: Folic Acid 1 MG TABLET PO (09:28)
--- NOTE | 2023-06-06 10:55 | MHC.CM.PN ---
Addendum entered by Mayeiln Aguilera 06/06/23 14:01: PT WILL DC HOME TODAY WITH NO SERVICES VIA PRIVATE TRANSPORT Original Note: PT REPORTS HE LIVES WITH HIS S/O AND IS INDEPENDENT WITH CARE HE HAS NO DME AND NO HOME SERVICES HE SAYS HE HAS A HCP NAMING HIS S/O, CORI HIS AGENT PCP: GLORIA HERNANDEZ [facility] HIS MORE EXPENSIVE MEDS SUCH ELIQUIS HE IS [facility]MM DELIVERED DCP: HOME NO SERVICES VIA PRIVATE TRANSPORT
--- NOTE | 2023-06-06 12:07 | PM.CNCAR ---
History of Present Illness History of Present Illness Date of Service: 06/06/23 Requesting physician: Sonia Etienne Chief complaint: Acute appendicitis, sinus bradycardia Narrative: 77-year-old gentleman with known history of atrial fibrillation for which she underwent ablation in the past and was taking apixaban 5 mg twice a day. He was following with Dr. Doherty at [facility]. He is presenting with acute appendicitis. He was given antibiotics and conservatively treated and is improving. He was noticed to be bradycardic with sinus bradycardia in 50s. Overnight his heart rates were as low as 30s. Mostly has been asymptomatic and is currently with heart rate of 50 without any symptoms. His abdominal pain has improved too. He also had transient atrial flutter and 1 of his ECG is clearly showing atrial flutter with variable block. Overall feeling better and his Eliquis has been resumed and plan is conservative treatment for appendicitis currently with antibiotics with further assessment by surgery down the line. [facility] Past Medical History Medical History Afib Hydroxyapatite deposition disease, unspecified site Functional capacity: independent ambulation Surgical History Surgical History History of carpal tunnel surgery of right wrist Social History Social History Household Members: Significant Other Housing: Condominium Do you presently have visiting nurse or other home services: No Patient Tobacco Use Status: Never used Tobacco Substance Use Type Other:: thc and cbd seltzer twice a month or less Currently Displaying Signs/Symptoms of Drug Intoxication Withdrawal: No Have you been hit, kicked, punched, or otherwise hurt by someone within the past year? 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 Meds Allergies Allergy/AdvReac Type Severity Reaction Status Date / Time No Known Allergies Allergy Verified 07/25/20 08:56 Active Medications: Current Medications Amoxicillin/Clavulanate Potassium (Amoxicillin/Potassium Clav 875 Mg Tablet) 875 mg PO BID [facility] Last Admin: 06/06/23 09:28 Dose: 875 mg Apixaban (Apixaban 5 Mg Tablet) 5 mg PO BID [facility] Last Admin: 06/06/23 09:28 Dose: 5 mg Benzonatate (Benzonatate 100 Mg Capsule) 200 mg PO TID PRN PRN Reason: Cough Last Admin: 06/05/23 04:26 Dose: 200 mg Folic Acid (Folic Acid 1 Mg Tablet) 1 mg PO DAILY [facility] Last Admin: 06/06/23 09:28 Dose: 1 mg Hydromorphone HCl (Hydromorphone Hcl 0.5 Mg/0.5 Ml Syringe) 0.25 mg IVPUSH Q3H PRN; Protocol PRN Reason: Pain, Severe (Pain Scale 7-10) Ondansetron HCl (Ondansetron Hcl 4 Mg/2 Ml Vial) 4 mg IVPUSH QID PRN PRN Reason: Nausea Sodium Chloride (0.9 % Sodium Chloride Flush 3 Ml Syringe) 3 ml IVFLUSH QSHIFT [facility] Last Admin: 06/06/23 07:20 Dose: Not Given Vitamin D (Cholecalciferol (Vitamin D3) 25 Mcg Tablet) 25 mcg PO DAILY [facility] Last Admin: 06/06/23 09:28 Dose: 25 mcg Zolpidem Tartrate (Zolpidem Tartrate 5 Mg Tablet) 5 mg PO BEDTIME PRN PRN Reason: Insomnia Home Medications Medication Instructions Recorded Confirmed Last Taken Type apixaban 5 mg tablet (Eliquis) 5 mg PO BID 06/04/23 06/04/23 06/04/23 18:30 History cholecalciferol (vitamin D3) 25 25 mcg PO DAILY 06/04/23 06/04/23 06/04/23 History mcg (1,000 unit) tablet folic acid 1 mg tablet 1 mg PO DAILY 06/04/23 06/04/23 06/04/23 History lutein 1 tab PO DAILY 06/04/23 06/04/23 06/04/23 History Physical Exam Vital Signs: Vital Signs: Last Vital Signs Temp 96.9 F 06/06/23 07:36 Pulse 52 06/06/23 07:36 Resp 18 06/06/23 07:36 BP 136/66 06/06/23 07:36 Pulse Ox 98 06/06/23 07:36 O2 Del Method Room Air 06/06/23 07:36 BMI result Body Mass Index 24.5 GENERAL APPEARANCE: in no acute distress, pleasant. NECK: no carotid bruit, no jugular venous distention. SKIN: no suspicious lesions, warm and dry. HEART: no murmurs, regular rate and rhythm. Bradycardic. LUNGS: clear to auscultation bilaterally. ABDOMEN: soft, nontender. EXTREMITIES: no edema. PERIPHERAL PULSES: equal. NEUROLOGIC: No gross deficits, AAO X 3 Objective Labs and Meds 06/06/23 06:19 06/06/23 06:19 Lab results: Laboratory Results - last 24 hr 06/06/23 06:19 WBC 5.5 RBC 3.78 L Hgb 12.1 L Hct 36.2 L MCV 95.8 MCH 32.0 MCHC 33.4 RDW 13.1 Plt Count 175 MPV 10.7 Absolute Nucleated RBC 0.000 Nucleated RBC % (auto) 0.0 Sodium 141 Potassium 3.7 Chloride 108 Carbon Dioxide 23 Anion Gap 14 BUN 8 L Creatinine 1.10 Estim Creat Clear Calc 49.9 Estimated GFR > 60 Random Glucose 104 Calcium 8.9 TSH 1.92 Assessment and Plan (1) Sinus bradycardia: Status: Acute (2) Atrial flutter: Status: Acute (3) Acute appendicitis: Qualifiers: Acute appendicitis type: with localized peritonitis Appendicitis abscess presence: without abscess Appendicitis gangrene presence: without gangrene Appendicitis perforation presence: without perforation Qualified Code(s): K35.30 - Acute appendicitis with localized peritonitis, without perforation or gangrene Status: Acute Plan Pleasant 77-year-old gentleman who is presenting with acute appendicitis. He was noticed to have bradycardia on telemetry. At night the bradycardia was more pronounced which is not unusual because of high vagal tone in sleep. Also with pain and nausea sometimes the vagal tone is higher and patients can get bradycardic. In any case he is currently asymptomatic. He should ambulate the hallways to see if his heart rate appropriately rises and if he is not dizzy or lightheaded he can be discharged from cardiovascular point of view and follow up with Dr. Doherty at [facility]. He has transient episode of atrial flutter. He is back in sinus rhythm. He is on anticoagulation already for stroke prevention. Thank you for allowing me to participate in the care of your patient. Please feel free to contact me if you have any questions. Time Spent With Patient Time: Total time managing care of this patient today ____ minutes. Procedures Date of Service Date of Service: 06/06/23
--- NOTE | 2023-06-07 10:34 | PM.DS ---
DS: Providers Provider Date of Service: 06/06/23 Date of admission: 06/04/23 18:59 Primary care physician: Karan Crook MD Attending physician on admission: Jose Soto Consults: 06/04/23 18:59 Consult to Hospitalist Routine Comment: Consulting Provider: Hospitalist Reason For Exam: a. jeremiah, appendicit 06/06/23 10:04 Consult to Cardiology Routine Consulting Provider: [facility] [place] [facility] Reason for consultation: bradycardia, dizziness Has provider been notified: No Attending physician on discharge: Jose Soto DS: Diagnosis Discharge Diagnosis (1) Sinus bradycardia: Status: Acute (2) Atrial flutter: Status: Acute (3) Acute appendicitis: Status: Acute DS: Summary Hospital Course Hospital Course: HPI AT ADMISSION: Solitario Mckee is a 77 year old male Presenting with complaints of abdominal pain in the right lower quadrant. Pain began as generalized lower abdominal pain on ( 06/03/2023 ) and gradually radiated to the right lower quadrant 1 day later. When the pain persisted and increased in severity he subsequently presented to the emergency department for further evaluation. He denies a previous history of abdominal pain similar to this. The pain seems to increase with motion. He reports nausea without vomiting as well as several loose bowel movements. He denied fever or chills. He presented to the emergency department and was found to have an elevated WBC of 12. CT abdomen and pelvis revealed a dilated appendix with surrounding inflammatory changes suggestive of acute appendicitis. No free fluid or abscess could be identified. No fecalith was identified. Patient was admitted and started on IV antibiotics. Patient has a prior history of atrial fibrillation and is on Eliquis 5 mg p.o. b.i.d.; he took his morning dose on 06/04/2023. This morning he reports feeling much improved with decreased abdominal pain and no pain with motion. He does have pain when pressing the abdomen in the right lower quadrant. HOSPITAL COURSE: He was admitted to the surgical service for further treatment of the acute appendicitis. He felt improved after receiving antibiotics overnight. Treatment options were discussed with the patient and he wished to continue with observation and antibiotics as this does seem to be helping. Hospitalist consultation requested for management of his medications. He continued to improve with antibiotics and his eliquis was resumed. He was noted to be bradycardic and cardiology consult was obtained. He was ambulated in the hallways with appropriate rise in his HR and he remained asymptomatic. He was therefore stable for discharge from cardiovascular stand point with follow up with Dr. Doherty at [facility]. He had no abdominal pain and was tolerating a solid diet. His abdomen was benign and nontender. He was transitioned to PO antibiotics and felt ready for discharge. He was discharged to home on 06/06/23 in stable condition on PO Augmentin. He is to follow up in the office in 1 week. Status at Discharge Functional status at discharge: independent ambulation Overall status at discharge: patient is progressing back to baseline Time Spent with Patient Time attestation: Total time managing care of this patient today ____ minutes. Discharge coordination time: Less than 30 minutes Quality: Safe Use of Opioids Does Pt have an Active Cancer Diagnosis on the Problem List?: No Quality: Stroke Does the patient have a stroke diagnosis?: No Physical Exam Vital Signs: Vital Signs: Last Vital Signs Temp 96.9 F 06/06/23 07:36 Pulse 52 06/06/23 07:36 Resp 18 06/06/23 07:36 BP 136/66 06/06/23 07:36 Pulse Ox 98 06/06/23 07:36 O2 Del Method Room Air 06/06/23 07:36 BMI result Body Mass Index 24.5 Const: General: comfortable, no acute distress and alert Orientation/consciousness: patient oriented x3 Resp: Effort & Inspection: normal respiratory effort GI: Inspection: Yes normal to inspection and No distended Palpation (GI): Soft to palpation, nontender and no guarding Skin: General skin exam: no rashes or lesions noted Neuro: General: patient oriented x3 DS: Data Data Completed and Pending Labs on day of discharge: Preliminary micro results at discharge 06/04/23 19:47 Blood Culture - Preliminary Blood - Venous No growth after 48 hours. 06/04/23 19:42 Blood Culture - Preliminary Blood - Venous No growth after 48 hours. Discharge Plan Discharge Anticipated Discharge Date/Time: 06/06/23 13:52 Patient Disposition: Home, Self-Care Discharge Diagnosis: Acute appendicitis without abscess or perforation Referrals: Jose Soto MD [Physician] - 1 Week Karan Crook MD [Primary Care Provider] - 1 Week Discharge Medications: New amoxicillin-pot clavulanate 875-125 mg Tablet 1 tab PO BID 7 Days Qty: 14 0RF Continued folic acid 1 mg Tablet 1 mg PO DAILY cholecalciferol (vitamin D3) 25 mcg (1,000 unit) Tablet 25 mcg PO DAILY Eliquis 5 mg Tablet 5 mg PO BID lutein 1 tab PO DAILY Discharge Orders: Discharge Order (Routine); Ordered 06/06/23 Ordered By: Jose Soto Diet: Advance to usual diet Activity on Discharge: As tolerated Stand Alone Forms: Patient Portal Discharge page Care Plan Goals: Return to normal activity and diet, resolution of abdominal pain Health Concerns: Abdominal pain right lower quadrant abdomen Plan of Treatment: IV antibiotics converted to oral antibiotics Assessment: Acute appendicitis without perforation or abscess. Discharge Date/Time: 06/06/23 15:16
== END 2023-06-06 15:16 | disposition home or self-care (01) | DRG 372 ==
LOC: HO.ED 19:06 → HO.EDOVER 19:07 → HO.S3 19:19
PROVIDERS: Internal Medicine; Physician Assistant; Physician Assistant Medical; Admitting Provider Surgery; Emergency Provider Emergency Medicine; PCP Internal Medicine; Visit Provider Surgery
DX: K35.30 Acute appendicitis with localized peritonitis, without perforation or gangrene (principal); I48.92 Unspecified atrial flutter; R00.1 Bradycardia, unspecified; Z20.822 Contact with and (suspected) exposure to COVID-19; Z79.01 Long term (current) use of anticoagulants; Z79.899 Other long term (current) drug therapy
CPT/HCPCS: 36415; 74177; 80048; 80053; 81001; 83690; 83735; 84443; 85025; 85027; 85610; 85730; 86850; 86900; 86901; 87040; 87635; 93005; 99221; 99285; J0131; J2270; J2405; J2543; J3475; Q9967

== ENCOUNTER → 2023-06-04 18:59 | Outpatient (BNV) | payer MEDICARE, SELFPAY | PROVIDERS: Admitting Provider Surgery; Emergency Provider Emergency Medicine; PCP Internal Medicine; Visit Provider Physician Assistant Medical | DX: K35.30 Acute appendicitis with localized peritonitis, without perforation or gangrene (principal) | CPT/HCPCS: 99223 ==

== ENCOUNTER → 2023-06-04 18:59 | Outpatient (BNV) | payer MEDICARE, SELFPAY | PROVIDERS: Admitting Provider Surgery; Emergency Provider Emergency Medicine; PCP Internal Medicine; Visit Provider Surgery | DX: R00.1 Bradycardia, unspecified (principal); I48.92 Unspecified atrial flutter; K35.30 Acute appendicitis with localized peritonitis, without perforation or gangrene | CPT/HCPCS: 99222; 99238 ==

== ENCOUNTER → 2023-06-04 18:59 | Outpatient (BNV) | payer MEDICARE, SELFPAY | PROVIDERS: Admitting Provider Surgery; Emergency Provider Emergency Medicine; PCP Internal Medicine; Visit Provider Internal Medicine Cardiovascular Disease | DX: R00.1 Bradycardia, unspecified (principal); K35.30 Acute appendicitis with localized peritonitis, without perforation or gangrene | CPT/HCPCS: 99221 ==

== ENCOUNTER 2025-03-15 09:06 | Emergency (ER) | payer MEDICARE, SELFPAY ==
--- NOTE | ~2025-03-15 | XR_ITS ---
EXAMINATION: XR CHEST CLINICAL INFORMATION: fever COMPARISON: None available. TECHNIQUE: 2 views of the chest were obtained. FINDINGS: No consolidation, pleural effusion or pneumothorax. No hyperinflation. Cardiomediastinal silhouette size is normal. Multilevel spondylosis. Degenerative changes in the right acromioclavicular joint. XR/XR chest 2V IMPRESSION: No acute airspace disease. Spondylosis. Electronically signed by: Edmund Jung MD 03/15/2025 10:46 AM EDT
--- NOTE | 2025-03-15 09:04 | ED.GENADULT ---
HPI - General Adult General Chief complaint: Weakness Stated complaint: FEVER,BODYACHES,CHILLS,H/O VERTIGO PER EMS Source: patient, EMS, RN notes reviewed and old records reviewed Mode of arrival: EMS Limitations: no limitations History of Present Illness ED Provider: Tere HPI narrative: Patient is an 79-year-old male with history of AFib/flutter status post ablation on Eliquis, CVA, appendicitis without appendectomy presenting to the emergency department with complaint of 4 days of feeling lightheaded, fatigued, subjective fevers/chills. States that when he gets up from a seated position he feels near syncopal. Denies chest pain or dyspnea, palpitations. Does report occasional coughing episodes which last around 5 minutes but states he does not cough throughout the day continuously. Complains of some nausea and belching but denies vomiting or diarrhea. States that over the past few days he has noticed his urine has become darker. 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 Reports a recent tick bite, but state he went to urgent care and was treated with 200mg doxycycline. MD complaint: lightheaded, fever Onset (ago): day(s) Related Data Home Medications ?Medication ?Instructions ?Recorded ?Confirmed apixaban 5 mg tablet (Eliquis) 5 mg PO BID 06/04/23 06/04/23 cholecalciferol (vitamin D3) 25 25 mcg PO DAILY 06/04/23 06/04/23 mcg (1,000 unit) tablet folic acid 1 mg tablet 1 mg PO DAILY 06/04/23 06/04/23 lutein 1 tab PO DAILY 06/04/23 06/04/23 Previous Rx's ?Medication ?Instructions ?Recorded amoxicillin 875 mg-potassium 1 tab PO BID 7 days #14 tabs 06/06/23 clavulanate 125 mg tablet doxycycline hyclate 100 mg tablet 100 mg PO BID 3 weeks #42 tabs 03/15/25 Allergies Allergy/AdvReac Type Severity Reaction Status Date / Time No Known Allergies Allergy Verified 03/15/25 09:49 Review of Systems Review of Systems: As per HPI Yes all other systems are reviewed and are negative Constitutional: Constitutional: Reports as per [facility] Past Medical History Medical History Afib Hydroxyapatite deposition disease, unspecified site Surgical History History of carpal tunnel surgery of right wrist Social History Social History Household Members: Significant Other [facility]: [facility] Do you presently have visiting nurse or other home services: No Unable to assess alcohol history related to: Unknown Patient Tobacco Use Status: Never used Tobacco Smoked in Last 30 Days: Yes Use of substances other than those prescribed or required for medical reasons: Unknown Advance Directives: No Advance Directives Information Provided: Yes service: Yes Current occupational status: employed and unemployed 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 Blood pressure normal. Heart rate normal. Respiratory rate normal. Temperature normal. Oxygen saturation normal. Const General: cooperative, healthy appearing and no acute distress Orientation/consciousness: oriented to person, oriented to place, oriented to time and patient oriented x3 Limitations: no limitations [facility] Head: Yes normocephalic and Yes atraumatic Ears: external ears normal General nose exam: Normal external nose present Face and sinus: Yes face symmetric Mouth: oropharynx normal and moist mucous membranes Throat: Yes uvula midline Eyes Pupils: Equal, round and reactive pupils present Neck Neck: Yes normal visual inspection and Yes supple Resp Effort & Inspection: normal respiratory effort and able to speak in complete sentences Auscultation: clear to auscultation bilaterally Cardio Rate: regular rate Rhythm: regular rhythm Heart sounds: S1 normal heart sound present and S2 normal heart sound present GI Palpation (GI): Soft to palpation and nontender Auscultation: normoactive bowel sounds General: Yes no CVA tenderness Back/Spine/Pelvis Back: no CVA tenderness Skin General skin exam: elasticity normal and turgor normal Neuro General: oriented to person, oriented to place, oriented to time, patient oriented x3, moves all extremities, no focal motor deficits and CN's II-XI intact bilaterally Cranial nerves: Yes Equal, round and reactive pupils present Cognition (Neuro): normal cognition Extrem General: Yes full ROM, Yes no pedal edema and Yes no calf tenderness Psych Mental Status: mental status grossly normal Affect: normal affect Thought process: Normal thought process present Medical Decision Making Medical Decision Making MDM Narrative: Patient is an 79-year-old male with history of AFib/flutter status post ablation on Eliquis, CVA, appendicitis without appendectomy presenting to the emergency department with complaint of 4 days of feeling lightheaded, fatigued, subjective fevers/chills. On exam patient is awake, A+Ox3, VS WNL, afebrile, normal neurological exam without focal deficits, physical exam findings as above. Given reported symptoms and physical exam findings, initial differential includes but is not limited to viral illness, COVID, flu, UTI, pneumonia, tick-borne illness. Labs notable for mild thrombocytopenia, no leukocytosis, elevated T bili with normal transaminases, no abdominal pain. Urinalysis is without evidence of infection. X-ray chest is without evidence of pneumonia. My interpretation is in agreement with the radiologist's interpretation. Viral panel negative. Upon further discussion patient now reporting that he had an additional tick bite after he was treated with doxycycline that he did not seek treatment for. Through shared decision making, patient is agreeable to starting doxycycline for prophylactic Lyme treatment. Tick panel is pending and patient will be updated with any positive results. Feel contact with trumpet vine unlikely source of patient's symptoms as adverse effects appear to be skin irritation and some GI upset. Advised patient to follow up with his PCP. Return precautions discussed. Patient and verbalized understanding of and agreement with plan. Differential Diagnosis Differential Diagnoses: The differential diagnosis associated with the presentation includes As per [facility]. Admission/Observation Consideration of admission/observation: Escalation of care including admission/observation considered Patient would have been admitted to the hospital had their work up had any findings where hospital admission was appropriate and their clinical presentation warranted hospital admission. Lab Data [facility] Lab Attestation statement: I reviewed the patient's lab results. as per [facility] 03/15/25 09:57 03/15/25 09:57 Labs: Lab Results 03/15/25 Range/Units 09:57 WBC 5.3 (4.8-10.8) X10*3/uL RBC 4.41 L (4.60-5.80) X10*6/uL Hgb 13.7 L (14.0-18.0) g/dl Hct 39.7 L (42.0-52.0) % MCV 90.0 (80.0-98.0) fL MCH 31.1 (27.0-33.0) pg MCHC 34.5 (31.0-36.0) g/dl RDW 13.2 (11.0-16.0) % Plt Count 121 L D (160-400) X10*3/uL MPV 10.2 (9.4-12.4) fL Immature Gran % (Auto) 0.4 (0.0-0.4) % Neut % (Auto) 67.7 (45-73) % Lymph % (Auto) 16.3 L (20-40) % Sherman % (Auto) 15.2 H (2-11) % Eos % (Auto) 0.2 (0-4) % Baso % (Auto) 0.2 (0-2) % Lymph # (Auto) 0.9 L (1.2-4.9) X10*3/uL Sherman # (Auto) 0.8 (0.1-1.2) X10*3/uL Eos # (Auto) 0.0 (0.0-0.4) X10*3/uL Baso # (Auto) 0.0 (0.0-0.2) X10*3/uL Abs Immat Gran (auto) 0.02 (0.00-0.03) X10*3/uL Absolute Neuts (auto) 3.6 (2.0-8.3) x10*3/uL Absolute Nucleated RBC 0.000 (0.0-0.012) X10*3/uL Nucleated RBC % (auto) 0.0 (0.0-0.2) /100WBC Sodium 134 L (135-145) mmol/L Potassium 4.0 (3.3-5.1) mmol/L Chloride 100 (96-108) mmol/L Carbon Dioxide 25 (22-29) mmol/L Anion Gap 13 (12-20) BUN 15 (9-16) mg/dL Creatinine 0.98 (0.5-1.4) mg/dL Estim Creat Clear Calc 54.2 Estimated GFR > 60 Random Glucose 101 (60-115) mg/dL Lactic Acid 1.0 (0.5-2.0) mmol/L Calcium 9.3 (8.4-10.2) mg/dL Total Bilirubin 2.6 H (0.0-1.0) mg/dL AST 33 (5-37) U/L ALT 33 (0-40) U/L Alkaline Phosphatase 33 L (39-117) U/L Total Protein 8.0 (6.5-8.0) g/dL Albumin 4.5 (3.5-5.0) g/dL Urine Color Yellow Urine Appearance Clear Urine pH 5.5 (5.0-9.0) Ur Specific [place] 1.020 (1.005-1.025) Urine Protein Negative (Neg-Trace) mg/dL Urine Glucose (UA) Negative (Negative) mg/dL Urine Ketones Negative (Negative) mg/dL Urine Blood Small (1+) H (Negative) Urine Nitrite Negative (Negative) Ur Leukocyte Esterase Negative (Negative) Urine RBC 0-2 (0-2) /HPF Urine WBC 0-5 (0-5) /HPF Ur Squamous Epith Cells 0-2 (0-2) /HPF Urine Bacteria None Seen (None Seen) Hyaline Casts 0-2 (0-2) /LPF Influenza Type A (PCR) NEGATIVE (Negative) Influenza Type B (PCR) NEGATIVE (Negative) RSV RNA Qual (PCR) NEGATIVE (Negative) SARS-CoV-2 RNA (RT-PCR) NEGATIVE (Negative) Independent Interpretation I performed an independent interpretation of an: EKG (normal sinus rhythm, rate 74bpm, normal [place] interval and QTc) and Plain X-Ray Interpretation: No evidence of pneumonia on chest x-ray Radiology Impression Discussion of test interpretation with radiology: I have reviewed the radiologist's reading. Radiologist Impression: XR/XR chest 2V IMPRESSION: No acute airspace disease. Spondylosis. Independent Historian Clinical information obtained from an independent historian. History obtained from or confirmed by: Spouse External Record Review External record reviewed: Inpatient record, Office record and Outpatient record Prescription Management I considered prescription management with: Antibiotic Discharge Plan Discharge Clinical Impression: Generalized body aches Fever Qualifiers: Fever type: unspecified Qualified Code(s): R50.9 - Fever, unspecified Patient Disposition: Home, Self-Care Instructions: Doxycycline (By mouth), Lyme Disease (ED) Additional Instructions: You were evaluated in the emergency department today for fever and body aches. Your tick-borne illness panel is still pending but you are being treated with an antibiotic called doxycycline for a suspected tick-borne illness. Take this medication as prescribed and complete the full course even if your symptoms improve. You will be contacted via telephone with any positive results of the tick-borne panel. We recommend that you follow-up with your primary care provider and advised them of this treatment. Return to the emergency department if you develop ongoing fevers, develop chest pain, shortness of breath or difficulty breathing, persistent vomiting, worsening pain or any other new or concerning symptoms. Prescriptions: New doxycycline hyclate 100 mg tablet 100 mg PO BID 21 Days Qty: 42 0RF No Action folic acid 1 mg Tablet 1 mg PO DAILY cholecalciferol (vitamin D3) 25 mcg (1,000 unit) Tablet 25 mcg PO DAILY Eliquis 5 mg Tablet 5 mg PO BID lutein 1 tab PO DAILY amoxicillin-pot clavulanate 875-125 mg Tablet 1 tab PO BID 7 Days Qty: 14 0RF Print Language: Setswana
[2025-03-15 09:12] VITALS: BP 128/68; PULSE 76; O2SAT 98
--- NOTE | 2025-03-15 09:12 | ECG_ITS ---
Test Reason : dizziness Blood Pressure : */* mmHG Vent. Rate : 74 BPM Atrial Rate : 74 BPM P-R Int : 166 ms QRS Dur : 88 ms QT Int : 350 ms P-R-T Axes : 76 61 76 degrees QTcB Int : 388 ms Normal sinus rhythm Septal infarct , age undetermined Abnormal ECG When compared with ECG of 06-Jun-2023 02:32, Normal sinus rhythm has replaced Atrial flutter Referred By: Irina Carranza Electronically Signed By: MARIA LUISA SANCHEZ MD
[2025-03-15 09:41] VITALS: BP 137/58; PULSE 73; RESP 19; TEMP 37.2; O2SAT 98
[2025-03-15 09:47] VITALS: BP 131/62; PULSE 70; RESP 14; TEMP 37.2; O2SAT 100; BMI 23.7
[2025-03-15 10:06] LABS: MANUAL DIFF FLAG NO
[2025-03-15 10:09] LABS: Appearance Urine Clear; Glucose Urine UA Negative (Negative); PH 5.5 (5.0-9.0); Specific Gravity - Urine 1.020 (1.005-1.025); UMIC TRIGGER UACC YES
[2025-03-15 10:25] LABS: Alanine Aminotransferase 33 U/L (0-40); Albumin Level 4.5 g/dL (3.5-5.0); Alkaline Phosphatase 33 U/L (39-117); Anion Gap 13 (12-20); Aspartate Amino Transferase 33 U/L (5-37); Blood Urea Nitrogen 15 mg/dL (9-16); Calcium 9.3 mg/dL (8.4-10.2); Carbon Dioxide 25 mmol/L (22-29); Chloride 100 mmol/L (96-108); Creatinine Clr Calc Pharmacy 54.2; Estimated Glomerular Filt Rate > 60; Potassium 4.0 mmol/L (3.3-5.1); Sodium 134 mmol/L (135-145); Total Protein 8.0 g/dL (6.5-8.0)
[2025-03-15 10:30] LABS: Hematocrit 39.7 % (42.0-52.0); Hemoglobin 13.7 g/dl (14.0-18.0); Imm Gran Abs Auto 0.02 X10*3/uL (0.00-0.03); Imm Gran Pct Auto 0.4 % (0.0-0.4); Lymphocytes Absolute Auto 0.9 X10*3/uL (1.2-4.9); Mean Corpuscular HGB Conc 34.5 g/dl (31.0-36.0); Mean Corpuscular Hemoglobin 31.1 pg (27.0-33.0); Mean Corpuscular Volume 90.0 fL (80.0-98.0); NRBC Abs Auto 0.000 X10*3/uL (0.0-0.012); NRBC Pct Auto 0.0 /100WBC (0.0-0.2); Platelet Count 121 X10*3/uL (160-400); Red Blood Count 4.41 X10*6/uL (4.60-5.80); White Blood Count 5.3 X10*3/uL (4.8-10.8)
--- OUTSIDE RECORDS SUMMARY | 2025-03-15 10:30 | XMS_ITS | Data Portability ---
Author Organization [facility], [address] Address [address] [place] [address] Assessment No assessment recorded. Plan of Treatment Reminders Order Date Submit Date Provider Last Modified By Organization Details Last Modified Time Details Appointments None recorded. 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 Procedures None recorded. Surgeries None recorded. Imaging None recorded. Medication Orders None recorded. Patient TargetsNo targets recorded. Patient Instructions Encounter Date Encounter Id Patient Instructions Last Modified By Organization Details Last Modified Time 09/17/2022 [id number] cough: care instructions [email or web address] Not available 09/17/2022 10:03:40 Reason for Referral None Reported. Results Created Date Observation Date Name Description Value Unit Range Abnormal Flag Note LastModifiedBy Organization Detail LastModifiedTime 09/17/19 23 09/18/2022 SARS- COV-2 , CORNELIO sars-cov-2, CORNELIO DETECT ED not detect ed abnormal Patie nts who have a posit jessica COVID -19 test resul t may now have treat ment optio ns. Treat ment optio ns are avail able for patie nts with mild to moder ate sympt oms and for hospi taliz ed patie nts. Visit our websi te at [email or web address] :[email or web address] for resou rces and infor matnils n. This nucle ic acid ampli ficat ion test was devel oped and its perfo rmanc e divina cteri stics deter mined by [employer]. Nucle ic acid ampli ficat ion tests inclu de RT-PC R and TMA. This test has not been FDA clear ed or appro yaz. This test has been autho rized by FDA under an Emerg ency Use Autho rizat ion (EUA) . This test is only autho rized for the durat ion of time the decla ratio n that circu mstan amando exist justi fying the autho rizat ion of the emerg ency use of in vitro diagn ostic tests for detec tion of SARS- CoV-2 virus and/o r diagn osis of COVID -19 infec tion under secti on 564(b )(1) of the Act, 21 U.S.C . 360bb b-3(b ) (1), unles s the autho rizat ion is termi nated or revok ed soone r. When diagn ostic testi ng is negat jessica, the possi bilit y of a false negat jessica resul t shoul d be consi dered in the finn xt of a patie nt's recen t expos ures and the prese nce of clini katy signs and sympt oms consi stent with COVID -19. An indiv idual witho ut sympt oms of COVID -19 and who is not felipe ing SARS- CoV-2 virus would expec t to have a negat jessica (not detec alia) resul t in this assay . Not Available [facility] ([facility]) [address] [facility], [place], [address], 09/18/2022 20:06:29 09/17/19 23 09/18/2022 SARS- COV-2 , CORNELIO sars-cov-2, CORNELIO 2 day tat PERFOR MED Not Available [facility] ([facility]) [address] [facility], [place], [address], 09/18/2022 20:06:29 09/17/19 23 09/17/2022 rapid SARS CoV 2 Ag, QL IA, respi rator y speci men Unknown Analyte Normal =Negat jessica Not Available [facility] [address] [place], [address], 09/17/2022 09:50:10 09/17/1909/17/2022 rapid SARS CoV 2 Ag, QL IA, respi rator y speci men Unknown Analyte negati ve Not Available [facility] [address] [place], [address], 09/17/2022 09:50:10 Result Notes None recorded. Problems Name Problem SNOMED Code Status Onset Date Resolution Date Notes Provider Name and Address Organization Details Recorded Time Atrial fibrillation [id number] Active 2022 QUIQUE clark PA - [facility] 3 09:40:56 Problem Notes None recorded. Procedures Surgical History Date Name Laterality Status Provider Name and Address Organization Details Recorded Time cardiac ablation using fluoroscopy guidance completed QUIQUE MIRZA PA - [facility] 09/17/2022 09:41:46 Carpal tunnel surgery completed QUIQUE MIRZA PA - [facility] 09/17/2022 09:41:57 Imaging Results None recorded. Procedure Notes None recorded. Medical Equipment None Reported. Allergies No known drug allergies Medications Name Sig Start Date Stop Date Status Note LastModified by Organization Details LastModified Time Eliquis active Not Available Not Avail able Not Available Vitals Date Recorded Body height Body mass index (BMI) Body weight Oxygen saturation Oxygen saturation in Arterial blood by Pulse oximetry Heart rate Respiratory rate Body temperature Systolic And Diastolic Provider Name and Address Organization Details Last Updated DateTime 3 167.64 cm 23.4 kg/m2 68498.8 9 g 98 % 98 % 90 /min 20 /min 100 [degF] 120/72 mm[Hg] QUIQUE MIRZA PA - [facility] 3 09:40:18 Social History Question Answer Notes LastModified by Organizat ion Details LastModified Time Tobacco Smoking Status Former Smoker LEWIS Roth - [facility] 09/17/2022 09:41:16 When Did You Quit Smoking? 16+yearssinc elastcigaret te [email or web address] Information not available 09/17/2022 Have You Recently Traveled Abroad? No [email or web address] Information not available 09/17/2022 Sex: Unknown Functional Status Question Answer Note LastModified by Organizat ion Details LastModified Time Do you use any illicit or recreational drugs? No [email or web address] Information not available 09/17/2022 Do you or have you ever used any other forms of tobacco or nicotine? No [email or web address] Information not available 09/17/2022 What is your level of alcohol consumption? None [email or web address] Information not available 09/17/2022 Mental Status None recorded. Family History Relationship Description Onset Age of this Age Resolved Age Notes LastModified by Organization Details LastModified Time Father No current problems or disability [email or web address] Not available 09/17 09:41:02 Mother No current problems or disability [email or web address] Not available 09/17 09:41:02 Medical History No medical history recorded. Past Encounters Encounter ID Performer Location Encounter Start Date Encounter Closed Date Diagnosis/Indication Diagnosis SNOMED-CT Code Diagnosis ICD10 Code Diagnosis Note [id number] D[place] [address] [address] 09/17/2022 09:17:01 09/17/2022 10:05:41 Viral respiratory infection 435479207 J06.9 If you test positive for COVID-19, stay home for at least 5 days and isolate from others in your home. You are likely most infectious during these first 5 days. Wear a high-quali ty mask if you must be around others at home and in public.Do not go places where you are unable to wear a mask. For travel guidance, see CDC s Travel webpage.Do not travel.Sta y home and separate from others as much as possible.U se a separate bathroom, if possible.T delicia steps to improve ventilatio n at home, if possible.D on t share personal household items, like cups, towels, and utensils.M onitor your symptoms. If you have an emergency warning sign (like trouble breathing) , seek emergency medical care immediatel y. If you had symptoms and:Your symptoms are improvingY ou may end isolation after day 5 if: You are fever-free for 24 hours (without the use of fever-redu cing medication ).Your symptoms are not improving Continue to isolate until: You are fever-free for 24 hours (without the use of fever-redu cing medication ).Your symptoms are improving. Regardless of when you end isolationU ntil at least day 11:Avoid being around people who are more likely to get very sick from COVID-19.R emember to wear a high-quali ty mask when indoors around others at home and in public.Do not go places where you are unable to wear a mask until you are able to discontinu e masking (see below).For travel guidance, see CDC s Travel webpage. Health Concerns Section Related Observation LastModified by Organization Detai ls LastModified Time None Recorded Concern Status LastModified by Organization Details LastModified Time None Recorded Advance Directives Directive None Recorded Payers Insurance Date Sequence Insurance Name Policy Number Policy Chang Covered Member ID Chang Member ID Guarantor Name 10/30/2022 1 [facility] [id number] 3 Solitario Mckee [id number] Solitario Mckee Notes Date Note Type Note Provider Name and Address Organization Details Recorded Time 09/17/2022 text/html CoughReported bypatient.Quality:i ntermittent Severity:moderate Associated Symptoms:fever;chil ls;nausea Dina Craft MD [address] [place], [place] [address], [id number], [place] - [facility] 09/17/2022 10:04:03
[2025-03-15 10:47] LABS: Resp Syncy Virus RNA Qual PCR NEGATIVE (Negative); SARS COV2 PCR INHOUSE NEGATIVE (Negative)
[2025-03-15 12:16] VITALS: BP 121/61; PULSE 69; RESP 16; TEMP 36.6; O2SAT 98
[2025-03-15 13:38] VITALS: BP 108/70; PULSE 81; RESP 16; TEMP 36.8; O2SAT 99
[2025-03-16 18:33] LABS: A. Phagocytphilium DNA,RT-PCR NOT DETECTED (NOT DETECTED); Babesia Microti DNA, RT-PCR DETECTED (NOT DETECTED); Borrelia Miyamotoi,DNA RT-PCR NOT DETECTED (NOT DETECTED); E.Chaffeensis DNA RT-PCR NOT DETECTED (NOT DETECTED); Lyme(Borrelia ssp)DNA RT-PCR NOT DETECTED (NOT DETECTED)
== END 2025-03-15 13:39 | disposition home or self-care (01) ==
PROVIDERS: Registered Nurse Emergency; Emergency Provider Emergency Medicine Emergency Medical Services; PCP Internal Medicine
DX: M79.10 Myalgia, unspecified site (principal); R50.9 Fever, unspecified; R42 Dizziness and giddiness; R94.31 Abnormal electrocardiogram [ECG] [EKG]; Z79.01 Long term (current) use of anticoagulants; Z86.73 Personal history of transient ischemic attack (TIA), and cerebral infarction without residual deficits; Z03.818 Encounter for observation for suspected exposure to other biological agents ruled out; Z79.899 Other long term (current) drug therapy
CPT/HCPCS: 71046; 80053; 81001; 83605; 85025; 87040; 87468; 87469; 87478; 87484; 87637; 87798; 93005; 99283; 99285

== ENCOUNTER → 2025-03-15 09:12 | Outpatient (BNV) | payer MEDICARE, SELFPAY | PROVIDERS: Emergency Provider Emergency Medicine Emergency Medical Services; PCP Internal Medicine; Visit Provider Radiology Diagnostic Radiology | DX: R50.9 Fever, unspecified (principal); M47.9 Spondylosis, unspecified | CPT/HCPCS: 71046 ==

== ENCOUNTER → 2025-03-15 09:12 | Outpatient (BNV) | payer MEDICARE, SELFPAY | PROVIDERS: Emergency Provider Emergency Medicine Emergency Medical Services; PCP Internal Medicine; Visit Provider Internal Medicine Cardiovascular Disease | DX: R94.31 Abnormal electrocardiogram [ECG] [EKG] (principal); R42 Dizziness and giddiness | CPT/HCPCS: 93010 ==

== ENCOUNTER 2025-04-06 14:19 | Emergency (ER) | payer MEDICARE, SELFPAY ==
[2025-04-06] VITALS (8 sets, daily range): BP systolic 113–139; BP diastolic 51–67; PULSE 51–60; RESP 12–18; TEMP 36.5–36.6; O2SAT 98–100; BMI 22.3
--- NOTE | 2025-04-06 | ECG_ITS ---
Test Reason : DIZZINESS Blood Pressure : */* mmHG Vent. Rate : 57 BPM Atrial Rate : 57 BPM P-R Int : 170 ms QRS Dur : 86 ms QT Int : 392 ms P-R-T Axes : 68 38 61 degrees QTcB Int : 381 ms Sinus bradycardia Otherwise normal ECG When compared with ECG of 15-Mar-2025 09:27, No significant change was found Referred By: Generic ED Physician Electronically Signed By: Jesus Manuel Easley
--- NOTE | ~2025-04-06 | MR_ITS ---
CLINICAL HISTORY: dizziness stroke? MRI brain without contrast Comparison: CT/SR - CT HEAD NECK ANGIOGRAPHY WITH IV CONTRAST - 04/06/25 15:48 EDT Findings: There is no abnormal diffusion restriction. There is no evidence of hemorrhage. Ventricles are of normal size and shape. There is no evidence of a mass or midline shift. There are scattered small T2/FLAIR hyperintensities in the deep cerebral white matter consistent with mild chronic small-vessel ischemic disease. Normal arterial flow voids are seen. The visualized portions of the orbits, mastoids, and paranasal sinuses are unremarkable. IMPRESSION: No acute intracranial abnormality. This document has been electronically signed by: Garcia Askew MD on 04/06/2025 22:31:24
--- NOTE | ~2025-04-06 | CT_ITS ---
EXAMINATION: CT ANGIOGRAM HEAD AND NECK CLINICAL INFORMATION: Dizziness, history of atrial fibrillation COMPARISON: None available. TECHNIQUE: Noncontrast axial imaging of the head was performed. This was followed by test bolus sequences and head and neck intravenous bolus administration of 75mL of Omnipaque 350. Helical imaging was performed in the axial plane from the aortic arch to the skull vertex. The data was processed at the senior nuclear medicine technologist's workstation for generation of MIP sequences. Angled MIPs and volume rendered reformatted images were also generated at an offline 3D workstation. Stenoses are assessed in accordance with NASCET criteria unless otherwise indicated. This CT examination was performed using dose optimization techniques as appropriate, variously including the following: *Automated exposure control *Adjustment of mA and/or kV according to patient size (this includes techniques or standardized protocols for targeted exams where dose is matched to indication/reason for exam; i.e. extremities or head) *Use of iterative reconstruction technique DLP: 1505 mGy*cm FINDINGS: NONCONTRAST HEAD CT: There is no evidence of intracranial hemorrhage or extra-axial fluid collection. There is no mass effect, or edema. No CT evidence of acute territorial infarct. Ventricles, sulci, and cisterns are normal in size and configuration for patient age. No hydrocephalus. No midline shift. No significant white matter abnormalities. Globes and orbital contents image normally. No extracranial soft tissue abnormalities. The paranasal sinuses, mastoid air cells, and tympanic cavities are normally aerated. No suspicious bony abnormalities. NECK CTA: -AORTIC ARCH: Normal in caliber. Mild atheromatous calcification. Three-vessel branching pattern. -GREAT VESSEL ORIGINS: Widely patent. No stenosis. -RIGHT COMMON CAROTID ARTERY: Normal in course and caliber to the level of the bifurcation. -CERVICAL RIGHT INTERNAL CAROTID ARTERY: Mild atherosclerotic calcification is present in the bladder. Normal opacification without focal stenosis or occlusion. -LEFT COMMON CAROTID ARTERY: Normal in course and caliber to the level of the bifurcation. -CERVICAL LEFT INTERNAL CAROTID ARTERY: Mild calcific atherosclerotic disease of the carotid bulb. There is no hemodynamically significant stenosis. -CERVICAL RIGHT VERTEBRAL ARTERY: Normal in course and caliber into the skull base. -CERVICAL LEFT VERTEBRAL ARTERY: Dominant. Normal in course and caliber into the skull base. OTHER, SOFT TISSUES: -No lymphadenopathy or mass. No abnormal fluid collection or soft tissue swelling. -Normal thyroid. -Imaged superior mediastinal structures normal. -Imaged lung apices clear. CTA OF THE BRAIN: -INTRACRANIAL INTERNAL CAROTID ARTERIES: No focal stenosis or occlusion. Multifocal atherosclerotic calcifications are present. -RIGHT ANTERIOR CEREBRAL ARTERY: Normal A1 segment.. Normal arborization of the distal segments. -LEFT ANTERIOR CEREBRAL ARTERY: Normal A1 segment.. Normal arborization of the distal segments. -ANTERIOR COMMUNICATING ARTERY: Normal. -RIGHT MIDDLE CEREBRAL ARTERY: Normal M1 segment of the MCA without focal stenosis or occlusion. Normal arborization of the distal segments. -LEFT MIDDLE CEREBRAL ARTERY: Normal M1 segment of the MCA without focal stenosis or occlusion. Normal arborization of the distal segments. -RIGHT VERTEBRAL ARTERY V4: Normal in course and caliber. Patent PICA branch. -LEFT VERTEBRAL ARTERY V4: Normal in course and caliber. Patent PICA branch. -BASILAR ARTERY: Normal without focal stenosis or occlusion. Normal appearance of the proximal superior cerebellar arteries. Normal basilar tip. -RIGHT POSTERIOR CEREBRAL ARTERY: Normal P1 segment. Normal opacification of the distal WATCHMAKING TEACHER segments. -LEFT POSTERIOR CEREBRAL ARTERY: Normal P1 segment. Normal opacification of the distal WATCHMAKING TEACHER segments. -POSTERIOR COMMUNICATING ARTERIES: Diminutive, more on the right. CT/CT angio head neck IMPRESSION: NONCONTRAST HEAD CT: No intracranial hemorrhage or mass effect. No CT evidence of acute territorial infarct. CTA NECK: No hemodynamically significant stenosis. CTA HEAD: No hemodynamically significant stenosis. Electronically signed by: Jameel Marie MD 04/06/2025 05:06 PM EDT
[2025-04-06 15:04] LABS: MANUAL DIFF FLAG NO
[2025-04-06 15:16] LABS: Hematocrit 30.2 % (42.0-52.0); Hemoglobin 10.4 g/dl (14.0-18.0); Imm Gran Abs Auto 0.01 X10*3/uL (0.00-0.03); Imm Gran Pct Auto 0.3 % (0.0-0.4); Lymphocytes Absolute Auto 1.2 X10*3/uL (1.2-4.9); Mean Corpuscular HGB Conc 34.4 g/dl (31.0-36.0); Mean Corpuscular Hemoglobin 31.8 pg (27.0-33.0); Mean Corpuscular Volume 92.4 fL (80.0-98.0); NRBC Abs Auto 0.000 X10*3/uL (0.0-0.012); NRBC Pct Auto 0.0 /100WBC (0.0-0.2); Platelet Count 120 X10*3/uL (160-400); Red Blood Count 3.27 X10*6/uL (4.60-5.80); White Blood Count 3.5 X10*3/uL (4.8-10.8)
[2025-04-06 15:23] LABS: Alanine Aminotransferase 29 U/L (0-40); Albumin Level 3.8 g/dL (3.5-5.0); Alkaline Phosphatase 43 U/L (39-117); Anion Gap 11 (12-20); Aspartate Amino Transferase 25 U/L (5-37); Blood Urea Nitrogen 24 mg/dL (9-16); Calcium 8.5 mg/dL (8.4-10.2); Carbon Dioxide 25 mmol/L (22-29); Chloride 108 mmol/L (96-108); Creatinine Clr Calc Pharmacy 57.9; Estimated Glomerular Filt Rate > 60; Magnesium 1.8 mg/dL (1.6-2.6); Potassium 3.9 mmol/L (3.3-5.1); Sodium 140 mmol/L (135-145); Total Protein 6.4 g/dL (6.5-8.0)
--- NOTE | 2025-04-06 15:30 | ED_ITS ---
HPI - General Adult General Chief complaint: Dizziness Stated complaint: DIZZINESS,FAINT PER EMS Time Seen by Provider: 04/06/25 15:15 Source: patient Mode of arrival: ambulatory Limitations: no limitations History of Present Illness ED Provider: Giovanni Cooper HPI narrative: Later year old male history of atrial flutter AFib presents to ED for lightheaded dizziness that began one hour and half ago. Patient states he was sitting down and when he got up to walk he felt like the room was spinning and he was leaning of the left. Patient denies ever having any slurred speech, facial droop, loss of vision, or paralysis of extremities. Patient denies any chest pain or shortness of breath. Patient denies any fever or chills. Patient's main complaint now is lightheadedness Related Data Home Medications ?Medication ?Instructions ?Recorded ?Confirmed apixaban 5 mg tablet (Eliquis) 5 mg PO BID 06/04/23 cholecalciferol (vitamin D3) 25 25 mcg PO DAILY 06/04/23 mcg (1,000 unit) tablet folic acid 1 mg tablet 1 mg PO DAILY 06/04/2306/04 lutein 1 tab PO DAILY 06/04/2305/15 Previous Rx's ?Medication ?Instructions ?Recorded amoxicillin 875 mg-potassium 1 tab PO BID 7 days #14 t abs 06/06/23 clavulanate 125 mg tablet doxycycline hyclate 100 mg tablet 100 mg PO BID 3 week s #42 tabs 03/15/25 atovaquone 750 mg/5 mL oral 750 mg (5 mL) PO BID 7 day s #70 mL 03/18/25 suspension azithromycin 250 mg tablet See Rx Instructions PO .COM PLEX #6 03/18/25 tabs meclizine 25 mg tablet 25 mg PO TID PRN dizziness # 20 tabs 04/07/25 Allergies Allergy/AdvReac Type Severity Reaction Status Date / Time No Known Allergies Allergy Verified 04/06/25 14:45 Review of Systems 2 Review of Systems: Lightheadedness dizziness Yes all other systems are reviewed and are negative [facility] Past Medical History Medical History Afib Hydroxyapatite deposition disease, unspecified site Surgical History History of carpal tunnel surgery of right wrist Social History Social History Household Members: Significant [facility] Do you presently have visiting nurse or other home services: No Unable to assess alcohol history related to: Unknown Alcohol intake: never Patient Tobacco Use Status: Never used Tobacco service: Yes Current occupational status: employed and unemployed Current occupation: Right Handed Physical Exam ED Vital Signs: Vital Signs - 24 hr 04/07/25 00:38 04/07/25 00:41 Temperature 97.9 F 97.9 F Pulse Rate 52 52 Respiratory Rate 18 18 Blood Pressure 117/59 L 117/59 L Pulse Oximetry 99 99 Oxygen Delivery Method Room Air Room Air BMI result Body Mass Index 22.3 Const General: cooperative, healthy appearing, comfortable, no acute distress, well developed, alert, awake and Physically active Orientation/consciousness: patient oriented x3 HENMT Head: Yes normal to inspection, Yes No palpable skull fracture present, Yes normocephalic and Yes atraumatic Eyes General: appearance normal, both eyes and all related structures Neck Neck: Yes normal visual inspection, Yes full ROM, Yes no lymphadenopathy, Yes no meningeal signs, Yes trachea midline, Yes supple, No anterior neck swelling and No tender Chest Chest palpation & inspection: normal inspection of the chest and normal palpation of entire chest wall Resp Effort & Inspection: normal respiratory effort and able to speak in complete sentences Auscultation: clear to auscultation bilaterally Cardio Jugular venous distension: no JVD Heart sounds: S1 normal heart sound present and S2 normal heart sound present GI Inspection: Yes normal to inspection Palpation (GI): Soft to palpation, not firm, nontender, no guarding and not rigid General: Yes no CVA tenderness Back/Spine/Pelvis Back: no CVA tenderness and No back tenderness Skin General skin exam: no rashes or lesions noted, elasticity normal and turgor normal Neuro General: patient oriented x3, gait normal, tone normal, moves all extremities, Normal light touch and pain sensation, no meningeal signs, no focal motor deficits, CN's II-XI intact bilaterally and normal sensation to monofilament Extrem General: Yes normal to inspection, Yes full ROM and Yes capillary refill normal Psych Appearance: grossly normal, well kempt and not disheveled NIH Stroke Scale Internal: Initial- Upon Arrival Level of Consciousness: Alert Level of Consciousness Questions: Answers both questions correctly Level of Consciousness Commands: Performs both tasks correctly Best Gaze: Normal Visual: No visual loss Facial Palsy: Normal Motor Arm (Right): No drift Motor Arm (Left): No drift Motor Leg (Right): No drift Motor Leg (Left): No drift Limb Ataxia: Absent Sensory: Normal Best Language: No aphasia Dysarthia: Normal Extinction and Inattention: No abnormality Score: 0 Course Course Course Narrative: 12:18 AM 04/07/2025 (Perry SAUCEDO): The patient was signed out to this provider at shift change. In summary the patient is an 79-year-old male presenting to the ED for evaluation of dizziness with unsteady gait. The patient has a history of AFib with the above lesion 3-4 weeks ago, and currently takes Eliquis for anticoagulation. Patient is workup revealed new onset anemia not meeting transfusion threshold, however given anticoagulation a guaiac was performed and was negative. The patient was also sent for a CT and CTA which was normal. At sign-out the patient was pending MRI and gait re-evaluation. At this time the patient's MRI has resulted and shows no acute intracranial pathology. Of note after sign-out the mechanical assembly technician advised this provider that the patient was experiencing severe claustrophobia while attempting scan, patient was given 5 mg IV Valium with good effect. The patient had also received meclizine for suspected vertiginous symptoms. At this time the patient reports symptoms have improved following meclizine and Valium, is currently able to ambulate with a steady gait. Given the patient's negative MRI and improvement with meclizine and Valium, suspect patient likely was experiencing vertiginous symptoms. At this time patient is safe for discharge home, will be discharged with a prescription for meclizine. Medications Administered Discontinued Medications Generic Name Dose Route Start Last Admin Trade Name Freq PRN Reason Stop Dose Admin Diazepam 5 mg 04/06/25 20:55 04/06/25 21:10 Diazepam 10 Mg/2 Ml Cartridge IVPUSH 04/06/25 20:56 5 mg STAT STA Administration Iohexol 100 ml 04/06/25 16:00 04/06/25 16:00 Iohexol 350 Mg/Ml 100 Ml Infus..Btl IV 04/06/25 16:01 70 ml ONCE ONE Administration Meclizine HCl 50 mg 04/06/25 15:27 04/06/25 15:58 Meclizine Hcl 25 Mg Tablet PO 04/06/25 15:28 50 mg ONCE ONE Administration Medical Decision Making Medical Decision Making [facility] Narrative: 79-year-old male presents to ED for dizziness and lightheadedness from sitting to standing position. Negative for any signs of neuro deficits. Negative Romberg. We will send for head CTA due to history of a flutter with recent ablation. We will check for any neck occlusions, thrombus. Labs EKG tripped ordered. Orthostatics ordered. 5:10pm: Decreasing hemoglobin hematocrit and comparison to March 15. We will act patient's questions in regards to possible GI bleeding. We will do rectal exam. Patient denies any bleeding from any orifices. 6:56pm: Stool occult swab negative. Upon re-evaluation of ambulation, patient was walking normal in all the sudden his gait became abnormal any started leaning to the right he was about to fall. I had to catch patient. Head CTA negative. MRI ordered. Signed out to Vero Humphries Differential Diagnosis Differential Diagnoses: The differential diagnosis associated with the presentation includes (Stroke, large vein occlusion of the neck, carotid stenosis, orthostatic hypotension) Admission/Observation Consideration of admission/observation: Escalation of care including admission/observation considered Lab Data [facility] Lab Attestation statement: I reviewed the patient's lab results. 04/06/25 14:56 04/06/25 14:56 Labs: Lab Results 04/06/25 04/06/25 04/06/25 Range/Units 14:56 16:33 18:44 WBC 3.5 L (4.8-10.8) X10*3/uL RBC 3.27 L D (4.60-5.80) X10*6/uL Hgb 10.4 L D (14.0-18.0) g/dl Hct 30.2 L D (42.0-52.0) % MCV 92.4 (80.0-98.0) fL MCH 31.8 (27.0-33.0) pg MCHC 34.4 (31.0-36.0) g/dl RDW 16.6 H (11.0-16.0) % Plt Count 120 L (160-400) X10*3/uL MPV 9.2 L (9.4-12.4) fL Immature Gran % (Auto) 0.3 (0.0-0.4) % Neut % (Auto) 55.3 (45-73) % Lymph % (Auto) 34.5 (20-40) % [place] % (Auto) 8.7 (2-11) % Eos % (Auto) 0.9 (0-4) % Baso % (Auto) 0.3 (0-2) % Lymph # (Auto) 1.2 (1.2-4.9) X10*3/uL [place] # (Auto) 0.3 (0.1-1.2) X10*3/uL Eos # (Auto) 0.0 (0.0-0.4) X10*3/uL Baso # (Auto) 0.0 (0.0-0.2) X10*3/uL Abs Immat Gran (auto) 0.01 (0.00-0.03) X10*3/uL Absolute Neuts (auto) 1.9 L (2.0-8.3) x10*3/uL Absolute Nucleated RBC 0.000 (0.0-0.012) X10*3/uL Nucleated RBC % (auto) 0.0 (0.0-0.2) /100WBC PT 16.4 H (10.9-12.4) SEC INR 1.4 H (0.9-1.1) APTT 34.4 (26.0-36.8) SEC Sodium 140 (135-145) mmol/L Potassium 3.9 (3.3-5.1) mmol/L Chloride 108 (96-108) mmol/L Carbon Dioxide 25 (22-29) mmol/L Anion Gap 11 L (12-20) BUN 24 H (9-16) mg/dL Creatinine 0.90 (0.5-1.4) mg/dL Estim Creat Clear Calc 57.9 Estimated GFR > 60 Random Glucose 91 (60-115) mg/dL Calcium 8.5 D (8.4-10.2) mg/dL Magnesium 1.8 (1.6-2.6) mg/dL Total Bilirubin 0.8 (0.0-1.0) mg/dL AST 25 (5-37) U/L ALT 29 (0-40) U/L Alkaline Phosphatase 43 (39-117) U/L Troponin I High Sens < 2.7 < 2.7 (<3.5-35.0) ng/L Total Protein 6.4 L (6.5-8.0) g/dL Albumin 3.8 (3.5-5.0) g/dL Stool Occult Blood NEGATIVE (NEGATIVE) Independent Interpretation I performed an independent interpretation of an: EKG and CT Scan Radiology Impression Discussion of test interpretation with radiology: I have reviewed the radiologist's reading. Independent Historian Clinical information obtained from an independent historian. History obtained from or confirmed by: Other (patient) Critical Care Time Critical Care Time Critical Care Time: Yes Total Critical Care Time: 60 Attestation: Dizziness Head CTA, CT and MRI ordered. Valium and meclizine ordered. labs EKG ordered Discharge Plan Discharge Clinical Impression: Dizziness of unknown etiology Patient Disposition: Home, Self-Care Instructions: Vertigo (ED), Lightheadedness (ED) Additional Instructions: Thank you for choosing [facility] Emergency Department for your care today. Thankfully your CT, laboratory evaluation, MRI, and exam today is reassuring and shows no evidence of any acute neurologic process causing your symptoms. Based on your improvement following meclizine and Valium it is possible you are suffering from vertigo. At this time there is no evidence of an acute process requiring admission to the hospital or continued ED observation, and it is safe to discharge you home. Please take meclizine as prescribed for additional symptoms. You may take alternating (staggered) doses of ibuprofen 600mg and Tylenol 1000mg every 4 hours as needed for any pain. Please stay well hydrated and get plenty of rest. Please follow up with your primary care physician for re-evaluation, additional management of your symptoms, and continued preventative care. If you do not have a primary care physician, please call the [facility] at [phone] to establish a new primary care physician. While waiting to establish your new primary care physician, you can call our Walk[facility]in [facility] at [phone] for non-emergency needs. Please return to the emergency department if you develop a severe or sudden change in your symptoms, a fever over 100.4 that does not improve with Tylenol or Ibuprofen, recurrent vomiting, or any other new or worsening symptoms or concerns. Prescriptions: New meclizine 25 mg tablet 25 mg PO TID PRN (Reason: dizziness) Qty: 20 0RF No Action folic acid 1 mg Tablet 1 mg PO DAILY cholecalciferol (vitamin D3) 25 mcg (1,000 unit) Tablet 25 mcg PO DAILY Eliquis 5 mg Tablet 5 mg PO BID lutein 1 tab PO DAILY amoxicillin-pot clavulanate 875-125 mg Tablet 1 tab PO BID 7 Days Qty: 14 0RF doxycycline hyclate 100 mg tablet 100 mg PO BID 21 Days Qty: 42 0RF azithromycin 250 mg tablet See Rx Instructions .ROUTE .COMPLEX Qty: 6 0RF Rx Instructions: For 250 mg dose pack: take 500 mg today (day 1), then 250 mg for 4 days (days 2-5) atovaquone 750 mg/5 mL suspension 750 mg PO BID 7 Days Qty: 70 0RF Rx Instructions: must administer with food, preferably a high-fat meal Referrals: Karan Crook MD [Primary Care Provider, Internal Medicine] Clinical Impression: Dizziness of unknown etiology Interventions: ED Discharge Assessment Last Done: 04/07/25 00:41 Discharge Date/Time: 04/07/25 00:42 Print Language: South Korean
[2025-04-06 15:31] LABS: Troponin-I High Sensitivity < 2.7 ng/L (<3.5-35.0)
[2025-04-06] MEDS: iohexoL 350 MG/ML 100 ML INFUS..BTL IV (16:00)
[2025-04-06 16:59] LABS: INTERNATIONAL NORM RATIO 1.4 (0.9-1.1); Prothrombin Time 16.4 SEC (10.9-12.4)
[2025-04-06 17:01] LABS: Partial Thromboplastin Time 34.4 SEC (26.0-36.8)
[2025-04-06 18:50] LABS: OBS Int Ctl Valid YES; OBS1 NEGATIVE (NEGATIVE)
[2025-04-06 19:10] LABS: Troponin-I High Sensitivity < 2.7 ng/L (<3.5-35.0)
[2025-04-06] MEDS: diazePAM 10 MG/2 ML CARTRIDGE 5 MG IVPUSH (21:10)
--- NOTE | 2025-04-06 21:10 | PC.NURSE ---
Called to MRI for c/o pt being claustrophobic. New orders entered, pt medicated by this RN in MRI
--- NOTE | 2025-04-06 22:30 | PC.NURSE ---
Pt ambulate to BR w/ stand-by assist. States he feels better, just a little groggy from medication, however, denies feeling dizz and/or lightheaded. Provider updated on pts status
--- NOTE | 2025-04-06 23:37 | PC.NURSE ---
This abstract writer assumed care of this Pt at 0305.
[2025-04-07 00:38] VITALS: BP 117/59; PULSE 52; RESP 18; TEMP 36.6; O2SAT 99
[2025-04-07 00:41] VITALS: BP 117/59; PULSE 52; RESP 18; TEMP 36.6; O2SAT 99
== END 2025-04-07 00:42 | disposition home or self-care (01) ==
PROVIDERS: Physician Assistant; Emergency Provider Emergency Medicine; PCP Internal Medicine
DX: R42 Dizziness and giddiness (principal); I48.91 Unspecified atrial fibrillation; R00.1 Bradycardia, unspecified; Z79.899 Other long term (current) drug therapy
CPT/HCPCS: 36415; 70496; 70498; 70551; 80053; 82272; 83735; 84484; 85025; 85610; 85730; 93005; 96374; 99285; J3360; Q9967

== ENCOUNTER → 2025-04-06 14:54 | Outpatient (BNV) | payer MEDICARE, SELFPAY | PROVIDERS: Emergency Provider Emergency Medicine; PCP Internal Medicine; Visit Provider Internal Medicine Cardiovascular Disease | DX: R00.1 Bradycardia, unspecified (principal) | CPT/HCPCS: 93010 ==

== ENCOUNTER → 2025-04-06 15:26 | Outpatient (BNV) | payer MEDICARE, SELFPAY | PROVIDERS: Emergency Provider Emergency Medicine; PCP Internal Medicine; Visit Provider Radiology Diagnostic Radiology | DX: R42 Dizziness and giddiness (principal) | CPT/HCPCS: 70496; 70498; 70551 ==

== ENCOUNTER 2025-06-28 13:16 | Emergency (ER) | payer MEDICARE, SELFPAY ==
[2025-06-28 13:30] VITALS: BP 147/67; PULSE 62; RESP 16; TEMP 36.3; O2SAT 98; BMI 22.1
--- NOTE | 2025-06-28 13:57 | ED.GENADULT ---
HPI - General Adult General Chief complaint: Abdominal Pain Stated complaint: appendicitis? Time Seen by Provider: 06/28/25 15:27 Source: patient Mode of arrival: ambulatory Limitations: no limitations History of Present Illness ED Provider: Justin Alexandre PA-C HPI narrative: 80-year-old male with history of AFib/a flutter on Eliquis, hx appendicitis 2022 treated with IV antibiotics who presents to the ER for evaluation of right inguinal pain on/off for the last 2-3 weeks. He reports the pain comes and goes, is sharp and aching in nature. He reports today the pain lasted 1 hour before it slowly resolved. It is not associated with nausea, vomiting, diarrhea or constipation. No fever or chills. No urinary symptoms. Reports that there is swelling in his right groin that comes and goes. He denies any skin changes over the area. He reports a history of appendicitis a couple years ago that was treated medically, and the pain feels similar when it is present. MD complaint: right groin pain and swelling Onset (ago): week(s) Location: abdomen Radiation: non-radiation Severity: severe Severity scale (1-10): 8 Quality: aching and sharp Pain Consistency: intermittent Relieving factors: rest Exacerbating factors: other (walking) Associated symptoms: denies other symptoms Treatments prior to arrival: none Related Data Home Medications ?Medication ?Instructions ?Recorded ?Confirmed apixaban 5 mg tablet (Eliquis) 5 mg PO BID 06/04/23 06/04/23 cholecalciferol (vitamin D3) 25 25 mcg PO DAILY 06/04/23 06/04/23 mcg (1,000 unit) tablet folic acid 1 mg tablet 1 mg PO DAILY 06/04/23 06/04/23 lutein 1 tab PO DAILY 06/04/23 06/04/23 Previous Rx's ?Medication ?Instructions ?Recorded amoxicillin 875 mg-potassium 1 tab PO BID 7 days #14 tabs 06/06/23 clavulanate 125 mg tablet doxycycline hyclate 100 mg tablet 100 mg PO BID 3 weeks #42 tabs 03/15/25 atovaquone 750 mg/5 mL oral 750 mg (5 mL) PO BID 7 days #70 mL 03/18/25 suspension azithromycin 250 mg tablet See Rx Instructions PO .COMPLEX #6 03/18/25 tabs meclizine 25 mg tablet 25 mg PO TID PRN dizziness #20 tabs 04/07/25 Allergies Allergy/AdvReac Type Severity Reaction Status Date / Time No Known Allergies Allergy Verified 06/28/25 13:34 Review of Systems Review of Systems: Yes all other systems are reviewed and are negative [facility] Past Medical History Medical History Afib Hydroxyapatite deposition disease, unspecified site Surgical History History of carpal tunnel surgery of right wrist Social History Social History Household Members: Significant Other [facility]: [facility] Do you presently have visiting nurse or other home services: No Alcohol intake: never Patient Tobacco Use Status: Never used Tobacco Smoked in Last 30 Days: No Use of substances other than those prescribed or required for medical reasons: No Advance Directives: No Advance Directives Information Provided: Yes service: Yes Current occupational status: employed and unemployed Current occupation: Right Handed Physical Exam ED Exam Exam: Appearance: Alert. Oriented X3. No acute distress. Head: normocephalic, atraumatic. Eyes: Pupils equal, round and reactive to light. ENT: Pharynx normal. No tonsillar swelling or exudate. Neck: Normal inspection. Neck supple. CVS: Bradycardic, regular rhythm. Pulses normal. Respiratory: No respiratory distress. Breath sounds normal. Abdomen: Soft and nontender. right inguinal region with a soft tissue mass that is tender, palpable defect with ability to fully reduce the mass. normal active +BS x4 Skin: Skin warm and dry. Normal skin color. Normal skin turgor. No rashes. Extremities: No lower extremity edema. No joint swelling. Neuro/psych: Oriented X 3. No motor deficit. No sensory deficit. CN II-XII intact. Normal speech and cognition. Vital Signs: Vital Signs - 24 hr 06/28/25 13:30 06/28/25 15:10 06/28/25 16:19 Temperature 97.3 F 0 F L Pulse Rate 62 50 50 Respiratory Rate 16 18 18 Blood Pressure 147/67 H 135/60 135/60 Pulse Oximetry 98 98 98 Oxygen Delivery Method Room Air Room Air Room Air BMI result Body Mass Index 22.1 Course Course Course Narrative: RME: 80 yold male presents to the ED for RLQ/right groin pain. patient states he had appendicitis last year, but was tereated medically. patient states right groin/bulging and pain. patient to be evaluated in the ED. labs ordered Medical Decision Making Medical Decision Making [facility] Narrative: 80-year-old male with a history of AFib, a flutter on Eliquis who presents to the ER for evaluation of right inguinal pain, on and off for the last couple of weeks. Pain today lasted 1 hour before self-resolving. He reports intermittent swelling in the right inguinal region. On examination there was a soft tissue bulge that was able to be reduced consistent with an inguinal hernia. No evidence of incarceration or strangulation at this time. He tolerated well. No emergent need for imaging today. His lab work and vital signs were reassuring and unremarkable. Patient was counseled on inguinal hernia, management and return precautions. Will provide referral to General surgery for further evaluation and treatment. Other supportive care measures including stool softeners and laxatives, compression devices discussed. Patient expressed understanding and stable for discharge home Differential Diagnosis Differential Diagnoses: The differential diagnosis associated with the presentation includes Acute appendicitis, inguinal hernia, incarcerated hernia, strangulated hernia, UTI, kidney stone, colitis, inguinal strain Admission/Observation Consideration of admission/observation: Escalation of care including admission/observation considered Lab Data [facility] Lab Attestation statement: I reviewed the patient's lab results. No leukocytosis, normal renal function, normal urinalysis 06/28/25 14:15 06/28/25 14:15 Labs: Lab Results 06/28/25 Range/Units 14:15 WBC 4.8 (4.8-10.8) X10*3/uL RBC 4.72 D (4.60-5.80) X10*6/uL Hgb 15.0 D (14.0-18.0) g/dl Hct 43.5 D (42.0-52.0) % MCV 92.2 (80.0-98.0) fL MCH 31.8 (27.0-33.0) pg MCHC 34.5 (31.0-36.0) g/dl RDW 12.0 (11.0-16.0) % Plt Count 206 D (160-400) X10*3/uL MPV 9.4 (9.4-12.4) fL Immature Gran % (Auto) 0.2 (0.0-0.4) % Neut % (Auto) 58.5 (45-73) % Lymph % (Auto) 32.0 (20-40) % Williams % (Auto) 8.3 (2-11) % Eos % (Auto) 0.6 (0-4) % Baso % (Auto) 0.4 (0-2) % Lymph # (Auto) 1.6 (1.2-4.9) X10*3/uL Williams # (Auto) 0.4 (0.1-1.2) X10*3/uL Eos # (Auto) 0.0 (0.0-0.4) X10*3/uL Baso # (Auto) 0.0 (0.0-0.2) X10*3/uL Abs Immat Gran (auto) 0.01 (0.00-0.03) X10*3/uL Absolute Neuts (auto) 2.8 (2.0-8.3) x10*3/uL Absolute Nucleated RBC 0.000 (0.0-0.012) X10*3/uL Nucleated RBC % (auto) 0.0 (0.0-0.2) /100WBC Sodium 141 (135-145) mmol/L Potassium 3.9 (3.3-5.1) mmol/L Chloride 105 (96-108) mmol/L Carbon Dioxide 28 (22-29) mmol/L Anion Gap 12 (12-20) BUN 21 H (9-16) mg/dL Creatinine 0.94 (0.5-1.4) mg/dL Estim Creat Clear Calc 55.8 Estimated GFR > 60 Random Glucose 93 (60-115) mg/dL Lactic Acid 0.7 (0.5-2.0) mmol/L Calcium 10.1 D (8.4-10.2) mg/dL Total Bilirubin 1.3 H (0.0-1.0) mg/dL AST 25 (5-37) U/L ALT 30 (0-40) U/L Alkaline Phosphatase 39 (39-117) U/L Total Protein 8.2 H (6.5-8.0) g/dL Albumin 5.2 H (3.5-5.0) g/dL Urine Color Yellow Urine Appearance Clear Urine pH 5.0 (5.0-9.0) Ur Specific [place] 1.015 (1.005-1.025) Urine Protein Negative (Neg-Trace) mg/dL Urine Glucose (UA) Negative (Negative) mg/dL Urine Ketones Negative (Negative) mg/dL Urine Blood Negative (Negative) Urine Nitrite Negative (Negative) Ur Leukocyte Esterase Negative (Negative) Independent Historian Clinical information obtained from an independent historian. History obtained from or confirmed by: Spouse External Record Review External record reviewed: Inpatient record and Prior outpatient labs Tests considered The following testing was considered but not selected: abdominal U/S and CT scans were considered - no emergent need today as hernia was reduced Prescription Management I considered prescription management with: Pain Medication and Antibiotic Chronic Conditions Patient?s care impacted by: Other (afib on eliquis) Critical Care Time Critical Care Time Critical Care Time: No Discharge Plan Discharge Clinical Impression: Inguinal hernia Patient Disposition: Home, Self-Care Instructions: Inguinal Hernia (ED), Inguinal Hernia Repair (DC) Additional Instructions: Your exam was consistent with an inguinal hernia today. It was able to be reduced. Your lab workup was unremarkable. Recommend following up with General surgery for further evaluation of your hernia. Recommend stool softeners and gentle laxative to keep your bowel movements soft, so you do not strain to have a bowel movement. Avoid heavy lifting and prolonged time on your feet Recommend boxer briefs, or spandex compression shorts to help support the groin and prevent the hernia from bulging out If you develop new or worsening symptoms call 911 or come back to the ER for further evaluation. Prescriptions: No Action folic acid 1 mg Tablet 1 mg PO DAILY cholecalciferol (vitamin D3) 25 mcg (1,000 unit) Tablet 25 mcg PO DAILY Eliquis 5 mg Tablet 5 mg PO BID lutein 1 tab PO DAILY amoxicillin-pot clavulanate 875-125 mg Tablet 1 tab PO BID 7 Days Qty: 14 0RF doxycycline hyclate 100 mg tablet 100 mg PO BID 21 Days Qty: 42 0RF azithromycin 250 mg tablet See Rx Instructions .ROUTE .COMPLEX Qty: 6 0RF Rx Instructions: For 250 mg dose pack: take 500 mg today (day 1), then 250 mg for 4 days (days 2-5) atovaquone 750 mg/5 mL suspension 750 mg PO BID 7 Days Qty: 70 0RF Rx Instructions: must administer with food, preferably a high-fat meal meclizine 25 mg tablet 25 mg PO TID PRN (Reason: dizziness) Qty: 20 0RF Ref[place]: [facility] [place] [facility] [Provider Group, General Surgery] Referral Note: right inguinal hernia Clinical Impression: Inguinal hernia Karan Crook MD [Primary Care Provider, Internal Medicine] Interventions: ED Discharge Assessment Last Done: 06/28/25 16:19 Discharge Date/Time: 06/28/25 16:19 Print Language: Luxembourgish
[2025-06-28 14:20] LABS: MANUAL DIFF FLAG NO
[2025-06-28 14:23] LABS: Appearance Urine Clear; Glucose Urine UA Negative (Negative); PH 5.0 (5.0-9.0); Specific Gravity - Urine 1.015 (1.005-1.025)
[2025-06-28 14:25] LABS: Hematocrit 43.5 % (42.0-52.0); Hemoglobin 15.0 g/dl (14.0-18.0); Imm Gran Abs Auto 0.01 X10*3/uL (0.00-0.03); Imm Gran Pct Auto 0.2 % (0.0-0.4); Lymphocytes Absolute Auto 1.6 X10*3/uL (1.2-4.9); Mean Corpuscular HGB Conc 34.5 g/dl (31.0-36.0); Mean Corpuscular Hemoglobin 31.8 pg (27.0-33.0); Mean Corpuscular Volume 92.2 fL (80.0-98.0); NRBC Abs Auto 0.000 X10*3/uL (0.0-0.012); NRBC Pct Auto 0.0 /100WBC (0.0-0.2); Platelet Count 206 X10*3/uL (160-400); Red Blood Count 4.72 X10*6/uL (4.60-5.80); White Blood Count 4.8 X10*3/uL (4.8-10.8)
[2025-06-28 14:38] LABS: Alanine Aminotransferase 30 U/L (0-40); Albumin Level 5.2 g/dL (3.5-5.0); Alkaline Phosphatase 39 U/L (39-117); Anion Gap 12 (12-20); Aspartate Amino Transferase 25 U/L (5-37); Blood Urea Nitrogen 21 mg/dL (9-16); Calcium 10.1 mg/dL (8.4-10.2); Carbon Dioxide 28 mmol/L (22-29); Chloride 105 mmol/L (96-108); Creatinine Clr Calc Pharmacy 55.8; Estimated Glomerular Filt Rate > 60; Potassium 3.9 mmol/L (3.3-5.1); Sodium 141 mmol/L (135-145); Total Protein 8.2 g/dL (6.5-8.0)
[2025-06-28 15:10] VITALS: BP 135/60; PULSE 50; RESP 18; O2SAT 98
[2025-06-28 16:19] VITALS: BP 135/60; PULSE 50; RESP 18; TEMP -17.7; TEMP 0; O2SAT 98
--- OUTSIDE RECORDS SUMMARY | 2025-06-28 19:15 | XMS_ITS ---
Author Name [facility] Organization Unknown Problems Problem Status Onset Date Problem Type Date of Resoluti on Source Vertigo active EncounterDiagnosisAct CCT Care Team Organization Name Specialty Phone Email Start Date End Da vanessa [facility] 05/07/2025
--- OUTSIDE RECORDS SUMMARY | 2025-06-28 19:15 | XMS_ITS | Clinical Summary ---
Author Organization [facility] Address [address] [place] [address] Care Team Providers Care Market Research Assistant Name Role Phone Unavailable Primary Care Provider Unavailabl e Encounters Date Type Department Care Team Description 05/04/2025 Transcribe Orders [facility] Karan Crook MD Vertigo (Primary Dx) from Last 3 Months Social History Tobacco Use Types Packs/Day Years Used Date Smoking Tobacco: Never Assessed Sex and Gender Information Value Date Recorded Sex Assigned at Male 05/07/2025 11:51 AM EDT Legal Sex Male 1:44 PM EDT Gender Identity Male 05/07/2025 11:40 AM EDT Sexual Orientation Heterosexual (straight) 05/07 11:51 AM EDT Plan of Treatment Upcoming Encounters Date Type Department Care Team (Late st Contact Info) Description 07/16/2025 9:30 AM EST Procedure visit [facility] [address], [place] [phone] Zelalem Pastrana MD [address] [place] [address] [phone] Brenda Lawson Au.D [address] [place] [address] [phone] Health Maintenance Due Date Last Done Comments Advance Care Planning 1945 DTaP/Tdap/Td Vaccines (1 - Tdap) 1963 Pneumococcal Vaccines 50+ (1 of 1 - PCV) 1994 Zoster (Shingles) Vaccine (1 of 2) 1994 RSV Vaccine 50 years and old er and Patients (1 - 1-dose 75+ series) 2019 Influenza Vaccine 04/13/2025 COVID-19 Vaccine (2023-2 5 season) 2025 Hepatitis B Vaccines Aged Out No long er eligible based on patient's age to complete this topic Insurance [employer] MED[employer]ARE
--- OUTSIDE RECORDS SUMMARY | 2025-06-28 19:15 | XMS_ITS | Data Portability ---
Author Organization [facility] Address [address] [place] [address] Assessment No assessment recorded. Plan of Treatment Reminders Order Date Submit Date Provider Last Modified By Organization Details Last Modified Time Details Appointments None recorded. 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 Procedures None recorded. Surgeries None recorded. Imaging None recorded. Medication Orders None recorded. Patient TargetsNo targets recorded. Patient Instructions Encounter Date Encounter Id Patient Instructions Last Modified By Organization Details Last Modified Time 09/17/2022 [id number] cough: care instructions [email or web address] Not available 09/17/2022 [...] nts. Visit our websi te at [email or web address] :[email or web address] - Payments Anytime | Anywhere. com/C [email or web address] 9 for resou rces and infor matnils n. This nucle ic acid ampli ficat ion test was devel oped and its perfo rmanc e divina cteri stics deter mined by [employer] es. Nucle ic acid [...] in this assay . Not Available [facility] ([facility]) [address] [facility], [place], [address], 09/18/2022 20:06:29 09/17/19 23 09/18/2022 SARS- COV-2 , CORNELIO sars-cov-2, CORNELIO 2 day tat PERFOR MED Not Available [facility] ([facility]) [address] [facility], [place], [address], 09/18/2022 20:06:29 09/17/1909/17/2022 rapid SARS CoV 2 Ag, QL IA, respi rator y speci men Unknown Analyte Normal =Negat [email or web address] Not Available [facility] [address] [place], [phone], 09/17/2022 09:50:10 09/17/1909/17/2022 rapid SARS CoV 2 Ag, QL IA, respi rator y speci men Unknown Analyte negati ve Not Available [facility] [address] [place] [address], [phone], 09/17/2022 09:50:10 Result Notes None recorded. Problems Name Problem SNOMED Code Status Onset Date Resolution Date Notes Provider Name and Address Organization Details Recorded Time Atrial fibrillation 52373977 Active 2022 QUIQUE clark PA - [facility] 3 09:40:56 Problem Notes None recorded. Procedures Surgical History Date Name Laterality Status Provider Name and Address Organization Details Recorded Time fluoroscopy guided cardiac ablation with contrast completed QUIQUE MIRZA PA - [facility] [...] saturation in Arterial blood by Pulse oximetry Pain severity - 0-10 verbal numeric rating [Score] - Reported Heart rate Respiratory rate Body temperature Systolic And Diastolic Provider Name and Address Organization Details Last Updated DateTime 3 167.64 cm 23.4 kg/m2 89120.8 9 g 98 % 98 % 7 90 /min 20 /min 100 [degF] 120/72 mm[Hg] QUIQUE MIRZA PA - [facility] 3 09:40:18 Social History Question Answer Notes LastModified by Organizat ion Details LastModified Time Tobacco Smoking Status Former Smoker LEWIS Roth - [facility] 09/17/2022 09:41:16 When Did You Quit Smoking? 16+yearssinc [email or web address] te Information not available 09/17/2022 Have You Recently Traveled Abroad? No Information not available 09/17/2022 Sex: Unknown Functional Status Question Answer Note LastModified by Organizat ion Details LastModified Time Do you use any illicit or recreational drugs? No [email or web address] Information not available 09/17/2022 Do you or have you ever used any other forms of tobacco or nicotine? No [email or web address] Information not available 09/17/2022 What is your level of alcohol consumption? None Information not available 09/17/2022 Mental Status None recorded. Family History Relationship Description Onset Age of this Age Resolved Age Notes LastModified by Organization Details LastModified Time Father No current problems or disability Not available 09/17 09:41:02 Mother No current problems or disability [email or web address] Not available 09/17 09:41:02 Medical History No medical history recorded. Past Encounters Encounter ID Performer Location Encounter Start Date Encounter Closed Date Diagnosis/Indication Diagnosis SNOMED-CT Code Diagnosis ICD10 Code Diagnosis IMO Codes Diagnosis Note [id number] [place] [address] [phone] 09/17/2022 09:17:01 09/17/2022 10:05:41 Viral respiratory infection 403590602 J06.9 If you test positive for COVID-19, stay home for at least 5 days and isolate from others in your home. Y ou are likely most infectious during these first 5 days. W ear a high-quali ty mask if you must [...] may end isolation after day 5 if: Y ou are fever-free for 24 hours (without the use of fever-redu cing medication ).Your symptoms are not improving Continue to isolate until: Y ou are fever-free for 24 hours (without the use of fever-redu cing medication ).Your symptoms are improving. R egardless of when you end isolationU ntil at [...] Chang Member ID Guarantor Name 10/30/2022 1 [facility] [id number] 3 Solitario Mckee [id number] Solitario Mckee Notes Date Note Type Note Provider Name and Address Organization Details Recorded Time 09/17/2022 text/html CoughReported by PatientHPIFor associated symptoms, patient reportsfever,chills , andnausea. For quality, patient reportsintermittent . For severity, patient reportsmoderate. Dina Craft MD [address] [place], [phone], [place] - [facility] 09/17/2022 10:04:03"
== END 2025-06-28 16:19 | disposition home or self-care (01) ==
PROVIDERS: Physician Assistant; Emergency Provider Emergency Medicine; PCP Internal Medicine
DX: K40.90 Unilateral inguinal hernia, without obstruction or gangrene, not specified as recurrent (principal); Z79.899 Other long term (current) drug therapy; R10.9 Unspecified abdominal pain
CPT/HCPCS: 36415; 80053; 81003; 83605; 85025; 99283; 99284